=== PATIENT | female | born 1950 | race Caucasian/White ===

== ENCOUNTER 2017-04-07 07:20 | Inpatient (IN) | payer MEDICARE, MEDICAID ==
[2017-04-07 07:48] LABS: Hematocrit 48.6 % (36.0-47.0); Mean Platelet Volume 6.7 fL (7.4-10.4); Red Blood Cell (RBC) Count 5.08 mill/uL (4.20-5.40); White Blood Cell (WBC) Count 20.3 thou/uL (4.8-10.8)
[2017-04-07] MEDS ORDERED: methylPREDNISolone Sod Succ/PF 125 MG/2 ML VIAL ONE (08:03)
[2017-04-07] MEDS ORDERED: Water For Inject, Bacteriostat 30 ML ONE (08:04)
[2017-04-07 08:05] LABS: Neutrophil 77 % (42-75); Reactive Lymphocytes 3 % (0-10)
[2017-04-07 08:11] LABS: ALT (SGPT) 15 U/L (8-55); AST (SGOT) 15 U/L (5-34); Alkaline Phosphatase 106 U/L (40-150); Anion Gap 16 mmol/L (10-20); BUN (Urea Nitrogen) 12 mg/dL (9.8-20.1); Bilirubin, Total 0.3 mg/dL (0.2-1.2); CK (CPK) 26 U/L (29-168); Calc. Creatinine Clearance 0 mL/min (70-130); Calcium 9.3 mg/dL (7.8-10.44); Carbon Dioxide 31 mmol/L (23-31); Chloride 96 mmol/L (98-107); Estimated GFR-MDRD 88; Globulin 3.7 g/dL (2.4-3.5); Protein, Total 7.5 g/dL (6.0-8.3)
[2017-04-07 08:13] LABS: Troponin I Less than 0.010 ng/mL (< 0.028)
--- NOTE | 2017-04-07 08:33 | RAD ---
CHEST 1 VIEW: HISTORY: Dyspnea. COMPARISON: 05/05/16. FINDINGS: Cardiac silhouette is magnified and upper limits of normal in size. Pulmonary vasculature is also u pper limits of normal. Mediastinum is midline. There is no lobar consolidation or evidence of pneu mothorax. family day care worker leads overlie the chest. IMPRESSION: Borderline cardiomegaly and pulmonary vascular congestion. POS: [facility]
[2017-04-07] MEDS ORDERED: Ondansetron HCl/PF 4 MG/2 ML Vial IVP PRN ×2 (10:30→12:54)
[2017-04-07] MEDS ORDERED: Acetaminophen 325 MG TAB PO PRN (10:30)
[2017-04-07] MEDS ORDERED: Ondansetron ODT 4 MG TAB SL PRN (10:30)
[2017-04-07 11:38] LABS: Troponin I Less than 0.010 ng/mL (< 0.028)
--- NOTE | 2017-04-07 12:45 | HP ---
PRIMARY CARE PHYSICIAN: Kathy Chadwick D.O. REASON FOR ADMISSION: COPD exacerbation with acute bronchitis/early pneumonia. HISTORY OF PRESENT ILLNESS: A 66-year-old female who has underlying history of morbid obesity as we ll as COPD and chronic respiratory failure on home oxygen therapy, who came to emergency room with c omplaint of increasing shortness of breath. The patient reports that she is sick this time for almo st a week or two. All symptoms started with upper respiratory infection and since then she is havin g gradual increase in shortness of breath. She was also having cough productive of yellowish sputum . She denies any hemoptysis. She was also having chest tightness and some pleuritic discomfort. S he was subjectively feeling warm at home. The patient reports that her home oxygen therapy as well as her home inhalers was not helping, and that is why she decided to come to the emergency room for evaluation. When this patient came to the ER, she was appeared in mild respiratory distress. She was on nonrebr eather and she was maintaining saturation 94%. She was tachypneic and tachycardic and hypertensive. Routine blood tests showed leukocytosis and her chest x-ray was showing chronic changes without an y acute process. This patient was wheezing in her both lungs. In the emergency room, the patient w as given Levaquin 750 mg. The patient already received Solu-Medrol 125 mg by paramedics. The patient is being admitted to medical floor for her COPD flare-up with bronchitis as well as bernice y pneumonia. PAST MEDICAL HISTORY: Morbid obesity, diverticulosis, dyslipidemia, COPD/asthma, hypertension, and epilepsy. PAST SURGICAL HISTORY: Cholecystectomy, hysterectomy, tonsillectomy, left ankle open reduction and internal fixation. PAST PSYCHIATRIC HISTORY: Anxiety and depression. SOCIAL HISTORY: The patient lives with her sister. She has a history of smoking. She denies any a lcohol or other illicit drug abuse. She is not able to quantify her number of cigarette smoking per day. FAMILY HISTORY: Positive for malignancy of unknown type to her mother. No family history of arnold ry artery disease or stroke. ALLERGIES: No known drug allergies. REVIEW OF SYSTEMS: The following complete review of systems was negative, unless otherwise mentione d in the HPI or below: Constitutional: Weight loss or gain, ability to conduct usual activities. Skin: Rash, itching. Eyes: Double vision, pain. ENT/Mouth: Nose bleeding, neck stiffness, pain, tenderness. Cardiovascular: Palpitations, dyspnea on exertion, orthopnea. Respiratory: Shortness of breath, wheezing, cough, hemoptysis, fever or night sweats. Gastrointestinal: Poor appetite, abdominal pain, heartburn, nausea, vomiting, constipation, or diar manny. Genitourinary: Urgency, frequency, dysuria, nocturia. Musculoskeletal: Pain, swelling. Neurologic/Psychiatric: Anxiety, depression. Allergy/Immunologic: Skin rash, bleeding tendency. Please see my HPI for pertinent positives and negatives. All other review of systems reviewed and n egative except as mentioned in the HPI. EMERGENCY ROOM COURSE: The patient has received Levaquin 750 mg. CURRENT HOME MEDICATIONS: The patient is on albuterol nebulization every 4 hourly p.r.n., Lasix 20 mg p.o. daily, Keppra 500 mg twice daily, phenobarbital 64.8 mg at bedtime, potassium chloride 20 mE q p.o. daily, Accupril 10/12.5 one tablet p.o. daily, and Zoloft 50 mg p.o. daily. PHYSICAL EXAMINATION: VITAL SIGNS: On arrival, blood pressure 154/100, pulse 150 and then came down to 100, respiratory r ate 23, temperature 97.8, saturation 94% on facemask, weight 131.5 kilograms. GENERAL: The patient is currently alert, awake, appears in mild respiratory distress. HEENT: Head: Normocephalic and atraumatic. Eyes: Pupils round, reactive to light. Extraocular m uscles are intact. ENT: Oropharynx within normal limits. Moist mucous membranes. No oral lesions . No pharyngeal erythema, no exudates. NECK: Supple, short neck. Difficult to assess JVD. No meningeal signs of irritation. LUNGS: Bilateral rhonchi, no rales. CARDIAC: S1, S2 regular, tachycardia, no murmur, no gallop, no rub. ABDOMEN: Morbid obesity limiting examination. Bowel sounds present, nontender, nondistended. No o rganomegaly, no mass, no suprapubic tenderness. BACK: Unremarkable, no CVA tenderness. EXTREMITIES: Upper extremity passive movements of all joints are normal. Lower extremities: No ed lisa. Good peripheral pulsation. SKIN: No skin rash. HEMATOLOGICAL: No lymphadenopathy. PSYCHIATRIC: Normal affect. SIGNIFICANT LABS: EKG based on my review, sinus tachycardia, premature atrial complexes, nonspecifi c ST-T changes. Chest x-ray based on my review, no acute cardiopulmonary process, chronic changes. CBC: WBC 20.3, hemoglobin 15.4, platelet 267 with left shift. BMP: Sodium 139, potassium 4.0, ch loride 96, carbon dioxide 31, BUN 12, creatinine 0.67, glucose 155, calcium 9.3. LFT: AST 15, ALT 15, alkaline phosphatase was 106, albumin 3.8, CK 26, CK-MB 0.7, troponin I less than 0.010, BNP 26. 2. Second set of troponin is also negative. ASSESSMENT AND PLAN: 1. Acute chronic obstructive pulmonary disease exacerbation with acute bronchitis/early pneumonia. This patient has dyspnea with cough and her leukocytosis and she failed outpatient therapy. At thi s point, the patient will require admission and we will continue to treat her with empiric antibioti c therapy with Rocephin 1 gram q.24 h., Levaquin 750 mg IV daily and DuoNeb therapy every 6 hourly a s well as as needed basis, Dulera two puffs inhalation b.i.d., Solu-Medrol 40 mg IV q.6 hourly and s ymptomatic treatment with Robitussin, Tessalon and Chloraseptic gargle. We will closely monitor pablito lentz in hospital. 2. Hypertension. I will continue the patient's home medication of quinapril 10 mg p.o. daily and h ydrochlorothiazide 12.5 mg p.o. daily. 3. Anxiety and depression. We will continue Zoloft 50 mg p.o. daily. 4. Epilepsy, restless seizure disorder. We will continue Keppra 500 mg twice daily, phenobarbital 64.8 mg p.o. daily. 5. Morbid obesity. Dietary education given, weight loss education given. 6. Chronic respiratory failure on home oxygen therapy. We will continue oxygen to keep saturation 92 and above. 7. Deep venous thrombosis prophylaxis. Lovenox 40 mg subcu daily. 8. Gastrointestinal prophylaxis. Protonix 40 mg p.o. daily. CODE STATUS: The patient is FULL CODE. The patient does not have any surrogate decision maker. Disposition plan based on clinical course. We are expecting patient's stay in the hospital more johana n 2 midnights. Plan of care discussed with the patient in detail.
[2017-04-07] MEDS ORDERED: Artificial Tears 18 DROP/0.9 ML EA EYE PRN (12:54)
[2017-04-07] MEDS ORDERED: Loperamide HCl 2 MG CAP PO PRN (12:54)
[2017-04-07] MEDS ORDERED: Milk Of Magnesia 30 ML UDCUP PO PRN (12:54)
[2017-04-07] MEDS ORDERED: Sodium Chloride 0.65% Nasal 44 ML BOT EA NARE PRN (12:54)
[2017-04-07] MEDS ORDERED: Ondansetron ODT 4 MG TAB PO PRN (12:54)
[2017-04-07] MEDS ORDERED: Chloraseptic Spray 180 ml Bottle PO PRN (12:54)
[2017-04-07] MEDS ORDERED: Benzonatate 100 MG CAP PO PRN (12:54)
[2017-04-07] MEDS ORDERED: Eucerin (Mineral Oil/Petrolatum,White) 30 gm Jar TOP PRN (12:54)
[2017-04-07] MEDS ORDERED: HYDROcodone/Acetaminophen 5/325 mg Tablet PO PRN (12:54)
[2017-04-07] MEDS ORDERED: cloNIDine HCl 0.1 MG TAB PO PRN (12:54)
[2017-04-07] MEDS ORDERED: Senokot 8.6 MG TAB PO PRN (12:54)
[2017-04-07] MEDS ORDERED: Mag-Al 1200 mg/1200 mg/30 ML UDCUP PO PRN (12:54)
[2017-04-07] MEDS ORDERED: Loratadine 10 MG TAB PO PRN (12:54)
[2017-04-07 13:44] VITALS: BMI 53.4
[2017-04-07] MEDS: cefTRIAXone\\ROCEPHIN 1 GM in Sodium Chloride 0.9% 100 ML IVPB SCH (14:34)
[2017-04-07] MEDS: Diabetic Tussin 200 MG/10 ML UDCUP PO PRN (18:03)
[2017-04-07] MEDS: Mometasone/Formoterol 120 PUFF INHALER INH SCH (18:33)
[2017-04-07] MEDS: guaiFENesin ER 600 MG TAB PO SCH (20:24)
[2017-04-07] MEDS: levETIRAcetam 500 MG TAB PO SCH (20:24)
[2017-04-07] MEDS ORDERED: PHENobarbital 64.8 MG TAB PO SCH ×2 (21:00)
[2017-04-07] MEDS ORDERED: FLU VACC TS2017-18 (>65YR) 0.5 ML SYRINGE IM ONE (21:00)
[2017-04-07] MEDS: PHENobarbital 32.4 MG TAB PO SCH (23:11)
[2017-04-08] MEDS: Diabetic Tussin 200 MG/10 ML UDCUP PO PRN (00:03)
[2017-04-08 05:08] LABS: ALT (SGPT) 13 U/L (8-55); AST (SGOT) 19 U/L (5-34); Alkaline Phosphatase 101 U/L (40-150); Anion Gap 13 mmol/L (10-20); BUN (Urea Nitrogen) 12 mg/dL (9.8-20.1); Bilirubin, Total 0.3 mg/dL (0.2-1.2); Calc. Creatinine Clearance 190 mL/min (70-130); Calcium 8.9 mg/dL (7.8-10.44); Carbon Dioxide 32 mmol/L (23-31); Chloride 97 mmol/L (98-107); Estimated GFR-MDRD Greater than 90; Globulin 3.6 g/dL (2.4-3.5); Protein, Total 7.1 g/dL (6.0-8.3)
[2017-04-08 05:56] LABS: Band 2 % (5-11); Hematocrit 46.4 % (36.0-47.0); Mean Platelet Volume 7.3 fL (7.4-10.4); Neutrophil 90 % (42-75); Reactive Lymphocytes 6 % (0-10); Red Blood Cell (RBC) Count 4.78 mill/uL (4.20-5.40); White Blood Cell (WBC) Count 23.3 thou/uL (4.8-10.8)
[2017-04-08 07:22] LABS: Oxyhemoglobin 83.5 % (94.0-97.0); Sodium 140 mmol/L (135-148)
[2017-04-08 07:23] LABS: Vent NO
[2017-04-08 07:25] LABS: Mode NC
[2017-04-08] MEDS: Mometasone/Formoterol 120 PUFF INHALER INH SCH (07:29)
[2017-04-08] MEDS ORDERED: Hydrochlorothiazide 25 MG TAB PO SCH (09:00)
[2017-04-08] MEDS: levETIRAcetam 500 MG TAB PO SCH ×2 (09:56→20:34)
[2017-04-08] MEDS: guaiFENesin ER 600 MG TAB PO SCH ×2 (09:56→20:34)
[2017-04-08] MEDS: Potassium Chloride 20 MEQ TAB PO SCH (09:56)
[2017-04-08] MEDS: Enoxaparin Sodium 40 MG/0.4 ML SYRINGE SC SCH (09:58)
[2017-04-08] MEDS ORDERED: Magnesium Sulfate 3 GM in Sodium Chloride 0.9% 100 ML IVPB SCH (12:30)
--- NOTE | 2017-04-08 14:17 | PDOC.PN ---
- Subjective Encounter Start Date: 04/08/17 Encounter Start Time: 06:45 Subjective: has sob, no chest pain - Objective Resuscitation Status: Resuscitation Status FULL:Full Resuscitation MAR Reviewed: Yes Vital Signs & Weight: Vital Signs (12 hours) Temp Pulse Resp BP BP Pulse Ox 04/08/17 13:00 78 04/08/17 11:00 98.5 F 76 28 H 119/54 L 94 L 04/08/17 09:05 69 04/08/17 08:35 98.5 F 76 24 H 129/81 91 L 04/08/17 07:08 85 24 H 131 H 04/08/17 04:00 98.5 F 82 18 131/64 96 Weight Weight 292 lb 2 oz I&O: 04/07/17 04/08/17 04/09/17 06:59 06:59 06:59 Intake Total 400 Balance 400 Result Diagrams: 04/08/17 04:14 04/08/17 04:14 Phys Exam - Physical Examination HEENT: PERRLA, moist MMs Neck: no JVD, supple Respiratory: no rales, wheezing present Cardiovascular: RRR, no significant murmur Gastrointestinal: soft, non-tender, positive bowel sounds Musculoskeletal: pulses present, edema present Neurological: non-focal, moves all 4 limbs Psychiatric: A&O x 3 Dx/Plan (1) Acute and chronic respiratory failure with hypoxia Code(s): J96.21 - ACUTE AND CHRONIC RESPIRATORY FAILURE WITH HYPOXIA Status: Acute Comment: and hypercarbia (2) COPD exacerbation Code(s): J44.1 - CHRONIC OBSTRUCTIVE PULMONARY DISEASE W (ACUTE) EXACERBATION Status: Acute (3) Seizure disorder Code(s): G40.909 - EPILEPSY, UNSP, NOT INTRACTABLE, WITHOUT STATUS EPILEPTICUS Status: Chronic (4) HTN (hypertension) Code(s): I10 - ESSENTIAL (PRIMARY) HYPERTENSION Status: Chronic Qualifiers: Hypertension type: essential hypertension (5) Morbid obesity Code(s): E66.01 - MORBID (SEVERE) OBESITY DUE TO EXCESS CALORIES Status: Chronic (6) Physical deconditioning Code(s): R53.81 - OTHER MALAISE Status: Chronic (7) BENIGNO (obstructive sleep apnea) Code(s): G47.33 - OBSTRUCTIVE SLEEP APNEA (ADULT) (PEDIATRIC) Status: Chronic - Plan transfer pt to [facility] for bipap trial -: pt is noncompliant with her home cpap? -: also mentions that her machine was taken back and needs new sleep study -: is on iv steroids, nebs, levaquin and ceftriaxone -: pulm consultation * . Review of Systems - Medications/Allergies Allergies/Adverse Reactions: Allergies Allergy/AdvReac Type Severity Reaction Status Date / Time No Known Drug Allergies Allergy Verified 10/18/13 00:49 Medications: Current Medications Acetaminophen (Tylenol) 650 mg PO Q4H PRN PRN Reason: Headache/Fever or Pain Al Hydroxide/Mg Hydroxide (Maalox) 30 ml PO Q6H PRN PRN Reason: Heartburn or Indigestion Albuterol/Ipratropium (Duoneb) 3 ml NEB [id number] PRN PRN Reason: SOB &/or Wheezing Last Admin: 04/07/17 15:20 Dose: 3 ml Artificial Tears (Tears Naturale) 0 drop EA EYE PRN PRN PRN Reason: Dry Eyes Benzonatate (Tessalon) 100 mg PO Q4H PRN PRN Reason: Cough Clonidine HCl (Catapres) 0.1 mg PO Q4H PRN PRN Reason: SBP GREATER THAN 160 Enoxaparin Sodium (Lovenox) 40 mg SC 0900 [facility] Last Admin: 04/08/17 09:58 Dose: 40 mg Guaifenesin (Robitussin Sf) 200 mg PO Q4H PRN PRN Reason: Cough Last Admin: 04/08/17 00:03 Dose: 200 mg Guaifenesin (Mucinex) 600 mg PO Q12HR [facility] Last Admin: 04/08/17 09:56 Dose: 600 mg Hydralazine HCl (Apresoline) 10 mg SLOW IVP Q4H PRN PRN Reason: Systolic BP > 180 Ceftriaxone Sodium 1 gm/ (Sodium Chloride) 100 mls @ 200 mls/hr IVPB Q24HR [facility] Last Admin: 04/07/17 14:34 Dose: 100 mls Magnesium Sulfate 3 gm/ Sodium (Chloride) 106 mls @ 53 mls/hr IVPB NOW AISSATOU Stop: 04/08/17 14:30 Last Admin: 04/08/17 12:49 Dose: 106 mls Levetiracetam (Keppra) 500 mg PO BID [facility] Last Admin: 04/08/17 09:56 Dose: 500 mg Loperamide HCl (Imodium) 2 mg PO PRN PRN PRN Reason: Diarrhea/Loose Stools Magnesium Hydroxide (Milk Of Magnesium) 30 ml PO DAILYPRN PRN PRN Reason: Constipation Methylprednisolone Sodium Succinate (Solu-Medrol) 40 mg IVP Q6H [facility] Last Admin: 04/08/17 09:56 Dose: 40 mg Mineral Oil/White Petrolatum (Eucerin Cream) 0 gm TOP BIDPRN PRN PRN Reason: Dry Skin Ondansetron HCl (Zofran Odt) 4 mg PO Q6H PRN PRN Reason: Nausea/Vomiting Ondansetron HCl (Zofran) 4 mg IVP Q6H PRN PRN Reason: Nausea/Vomiting Pantoprazole Sodium (Protonix) 40 mg PO DAILY [facility] Last Admin: 04/08/17 09:57 Dose: 40 mg Phenobarbital (Phenobarbital) 129.6 mg PO HS [facility] Last Admin: 04/07/17 23:11 Dose: 129.6 mg Phenol (Chloraseptic [place] 180 Ml Bot) 0 ml PO PRN PRN PRN Reason: Sore Throat Potassium Chloride (K-Dur) 20 meq PO QAM-WM [facility] Last Admin: 04/08/17 09:56 Dose: 20 meq Senna (Senokot) 2 tab PO HSPRN PRN PRN Reason: Constipation Sertraline HCl (Zoloft) 50 mg PO DAILY [facility] Last Admin: 04/08/17 09:56 Dose: 50 mg Sodium Chloride ([place] Nasal [place] 0.65%) 0 ml EA NARE QIDPRN PRN PRN Reason: Nasal Congestion Sodium Chloride (Flush - Normal Saline) 10 ml IVF Q12HR [facility] Last Admin: 04/08/17 09:59 Dose: 10 ml Sodium Chloride (Flush - Normal Saline) 10 ml IVF PRN PRN PRN Reason: Saline Flush
[2017-04-08] MEDS: cefTRIAXone\\ROCEPHIN 1 GM in Sodium Chloride 0.9% 100 ML IVPB SCH (15:08)
--- NOTE | 2017-04-08 19:17 | CON ---
DATE OF CONSULTATION: 04/08/2017 Ms. Ace is a 66-year-old female who has between 15 and [id number] history of smoking. She repor tedly has history of asthma and COPD. She was admitted yesterday with complaints of shortness of br eath. She was transferred to the ICU today and placed on noninvasive ventilation. I was consulted by the nurse at the bedside. PAST MEDICAL HISTORY: Remarkable for diverticulosis, obesity, sleep apnea, hypertension, cholecyste ctomy, hysterectomy, tonsillectomy and left ankle fracture surgery. She also reportedly has history of a seizure disorder, anxiety, and depression. She told me that she quit smoking, but says that she told the admitting physician, she was still smo freddy. FAMILY HISTORY: Positive for cancer, no history of lung disease at an early age. ALLERGIES: She reports no drug allergies. REVIEW OF SYSTEMS: Otherwise negative. She told me she wanted to go home, felt good . With regards to her sleep apnea, she says that she has had 3 sleep studies and her CPAP was picked u p by [facility]. She says she was unable to get a full facemask which is what she likes. I suspect they picked up her CPAP, she did not have the minimum requirement use. PHYSICAL EXAMINATION: VITAL SIGNS: She is afebrile, heart rate 76, respiratory rate 25. Oximetry is 98, blood pressure 1 55/84. HEENT: Pupils are equal. Sclerae is anicteric. NECK: Supple. LUNGS: Remarkable for diffuse coarse wheezes. HEART: Regular rhythm. ABDOMEN: Soft. EXTREMITIES: Without asymmetry. LABORATORY DATA: White count 23.3, hemoglobin 14.5, platelets 231. Sodium 137, potassium 4.7, chlo ride 97, bicarbonate 32, BUN 12, creatinine 0.6, pH 7.3, CO2 of 80, pO2 of 50, that was at 7:00 this morning. IMPRESSION: 1. Untreated sleep apnea. 2. Chronic obstructive pulmonary disease exacerbation with acute on chronic respiratory failure. S he is clinically speaking in complete sentences and says that she is comfortable with a BiPAP on. W e will continue more frequent respiratory care, will add magnesium. Continue steroids. I have revi ewed her chest radiographs. I do not see any infiltrates suggestive of pneumonia. I will be happy to follow along with the other physicians caring for her.
[2017-04-08] MEDS: PHENobarbital 32.4 MG TAB PO SCH (20:34)
[2017-04-08] MEDS: Acetaminophen 325 MG TAB PO PRN (22:43)
[2017-04-09 05:42] LABS: #Eosinphils 0.1 thou/uL (0.0-0.7); #Lymphocytes 0.9 thou/uL (1.20-3.40); #Monocytes 0.4 thou/uL (0.11-0.59); #Neutrophils 15.5 thou/uL (1.40-6.50); %Eosinophils 0.4 % (0.0-10.0); %Lymphocytes 5.2 % (21.0-51.0); %Monocytes 2.6 % (0.0-10.0); Hematocrit 44.3 % (36.0-47.0); Mean Platelet Volume 6.9 fL (7.4-10.4); Red Blood Cell (RBC) Count 4.53 mill/uL (4.20-5.40); White Blood Cell (WBC) Count 16.8 thou/uL (4.8-10.8)
[2017-04-09 06:05] LABS: BUN (Urea Nitrogen) 19 mg/dL (9.8-20.1); Calc. Creatinine Clearance 178 mL/min (70-130); Calcium 8.8 mg/dL (7.8-10.44); Estimated GFR-MDRD Greater than 90
[2017-04-09 06:14] LABS: Anion Gap 12 mmol/L (10-20); Carbon Dioxide 36 mmol/L (23-31); Chloride 96 mmol/L (98-107)
[2017-04-09] MEDS: levETIRAcetam 500 MG TAB PO SCH ×2 (08:08→21:25)
[2017-04-09] MEDS: guaiFENesin ER 600 MG TAB PO SCH ×2 (08:09→21:25)
[2017-04-09] MEDS: Potassium Chloride 20 MEQ TAB PO SCH (08:10)
[2017-04-09] MEDS: Enoxaparin Sodium 40 MG/0.4 ML SYRINGE SC SCH (08:10)
[2017-04-09] MEDS: cefTRIAXone\\ROCEPHIN 1 GM in Sodium Chloride 0.9% 100 ML IVPB SCH (13:56)
[2017-04-09] MEDS: Acetaminophen 325 MG TAB PO PRN (13:56)
--- NOTE | 2017-04-09 14:47 | PDOC.PN ---
- Subjective Encounter Start Date: 04/09/17 Encounter Start Time: 14:35 Subjective: f/u for COPD exacerbation on intermittent BIPAP. Currently off NIMV -: on O2 via NC. Previously used home CPAP but machine was taken by -: Marianela 2 months ago. - Objective Resuscitation Status: Resuscitation Status FULL:Full Resuscitation MAR Reviewed: Yes Vital Signs & Weight: Vital Signs (12 hours) Temp Pulse Pulse Resp BP BP Pulse Ox 04/09/17 11:46 97.3 F L 71 22 H 150/65 H 98 04/09/17 09:05 75 111/60 04/09/17 08:00 98.2 F 72 22 H 131/50 L 91 L 04/09/17 06:56 90 L 04/09/17 04:17 78 96 04/09/17 04:00 98.2 F 101 H 20 125/53 L 98 Pulse Ox 04/09/17 11:46 04/09/17 09:05 97 04/09/17 08:00 04/09/17 06:56 04/09/17 04:17 04/09/17 04:00 Weight Weight 292 lb 2 oz I&O: 04/08/17 04/09/17 04/10/17 06:59 06:59 06:59 Intake Total 400 350 Output Total 1400 Balance 400 -1050 Result Diagrams: 04/09/17 05:26 04/09/17 05:26 Additional Labs: Laboratory Tests 04/07/17 04/08/17 04/08/17 07:39 04:14 04:14 WBC 20.3 H 23.3 H Potassium 4.7 Radiology Reviewed by me: Yes (PCXR - no acute infiltrate) EKG Reviewed by me: Yes (Tele - SR in 70's) Phys Exam - Physical Examination Constitutional: NAD talks in 5-6 word sentences HEENT: PERRLA, oral pharynx no lesions Neck: no JVD, supple diminished in all ng, exp wheezes Cardiovascular: RRR Gastrointestinal: soft, non-tender, no distention, positive bowel sounds Musculoskeletal: no edema, pulses present Neurological: normal sensation, moves all 4 limbs Psychiatric: A&O x 3 Skin: normal turgor, cap refill <2 seconds Dx/Plan (1) Acute on chronic respiratory failure with hypoxia and hypercapnia Code(s): J96.21 - ACUTE AND CHRONIC RESPIRATORY FAILURE WITH HYPOXIA; J96.22 - ACUTE AND CHRONIC RESPIRATORY FAILURE WITH HYPERCAPNIA Status: Acute Comment : Continue O2 supplementation and intermitten BiPAP, will need outpt BiPAP/CPAP for home use with PaCO2 80, pulmonary support (2) BENIGNO (obstructive sleep apnea) Code(s): G47.33 - OBSTRUCTIVE SLEEP APNEA (ADULT) (PEDIATRIC) Status: Chronic Comment: See above (3) COPD exacerbation Code(s): J44.1 - CHRONIC OBSTRUCTIVE PULMONARY DISEASE W (ACUTE) EXACERBATION Status: Acute Comment: Continue Rocephin, Duonebs and Solumedrol (4) Morbid obesity Code(s): E66.01 - MORBID (SEVERE) OBESITY DUE TO EXCESS CALORIES Status: Chronic (5) Physical deconditioning Code(s): R53.81 - OTHER MALAISE Status: Chronic (6) HTN (hypertension) Code(s): I10 - ESSENTIAL (PRIMARY) HYPERTENSION Status: Chronic Qualifiers: Hypertension type: essential hypertension Comment: Resume home BP regimen, follow clinically - Plan continue antibiotics, PT/OT, health and social care teacher, respiratory therapy, out of bed/ ambulate, DVT proph w/SCDs Stable overall -: Intermittent BiPAP, CM for assistance on outpt CPAP -: Continue Solumedrol 40mg IV q6h -: Add Dulera 200mcg 1 puff BID -: AM lab: BMP * .
[2017-04-09] MEDS: Mometasone/Formoterol 120 PUFF INHALER INH SCH (19:38)
--- NOTE | 2017-04-09 21:04 | PRG ---
DATE OF SERVICE: 04/09/2017 SUBJECTIVE: Marychuy Ace says she feels much better. We have her off BiPAP now, will continue to thompson ve her sleep with this. OBJECTIVE: VITAL SIGNS: Blood pressure 150/65, respiratory rate is in the 20s, heart rate was 70. She is afeb rile. LUNGS: Still remarkable for wheezes, but these are improved. HEART: Regular rhythm. ABDOMEN: Soft. LABORATORY DATA: White count 16.8, hemoglobin 13.9, platelets 215. Sodium 139, potassium 5.3, chloride 96, bicarbonate 36, BUN 19, creatinine 0.6, glucose 146. IMPRESSION: 1. Sleep apnea. 2. Chronic obstructive pulmonary disease exacerbation. 3. Life threatening obesity. PLAN: Continue with the above. She probably should stay in the IMU for now.
[2017-04-09] MEDS: PHENobarbital 32.4 MG TAB PO SCH (21:25)
[2017-04-10 05:42] LABS: Anion Gap 11 mmol/L (10-20); BUN (Urea Nitrogen) 21 mg/dL (9.8-20.1); Calc. Creatinine Clearance 182 mL/min (70-130); Calcium 8.8 mg/dL (7.8-10.44); Carbon Dioxide 37 mmol/L (23-31); Chloride 96 mmol/L (98-107); Estimated GFR-MDRD Greater than 90
[2017-04-10] MEDS: Mometasone/Formoterol 120 PUFF INHALER INH SCH ×2 (07:56→18:59)
[2017-04-10] MEDS: guaiFENesin ER 600 MG TAB PO SCH ×2 (08:51→20:48)
[2017-04-10] MEDS: Potassium Chloride 20 MEQ TAB PO SCH (08:52)
[2017-04-10] MEDS: levETIRAcetam 500 MG TAB PO SCH ×2 (08:52→20:48)
[2017-04-10] MEDS: Enoxaparin Sodium 40 MG/0.4 ML SYRINGE SC SCH (08:54)
--- NOTE | 2017-04-10 09:59 | PDOC.PN ---
- Subjective Encounter Start Date: 04/10/17 Encounter Start Time: 09:45 Subjective: f/u for COPD exacerbation and acute respiratory failure. Feels better -: overall. Using BiPAP at night and O2 via NC during the day. - Objective Resuscitation Status: Resuscitation Status FULL:Full Resuscitation MAR Reviewed: Yes Vital Signs & Weight: Vital Signs (12 hours) Temp Pulse Resp BP BP Pulse Ox 04/10/17 08:00 98.3 F 66 20 93 L 04/10/17 07:13 98.3 F 66 20 164/71 H 93 L 04/10/17 04:00 98.0 F 68 160/55 H 04/10/17 02:18 139/54 L 04/10/17 00:00 98.1 F 67 24 H 172/57 H 94 L Weight Weight 293 lb I&O: 04/09/17 04/10/17 04/11/17 06:59 06:59 06:59 Intake Total 350 2170 Output Total 1400 750 Balance -1050 1420 Result Diagrams: 04/09/17 05:26 04/10/17 05:09 EKG Reviewed by me: Yes (Tele - SR in 60's) Phys Exam - Physical Examination Constitutional: NAD HEENT: PERRLA, oral pharynx no lesions Neck: no JVD, supple scattered coarse sounds, increased aeration of bases Cardiovascular: RRR Gastrointestinal: soft, non-tender, no distention, positive bowel sounds Musculoskeletal: no edema, pulses present Neurological: normal sensation, moves all 4 limbs Psychiatric: A&O x 3 Skin: normal turgor, cap refill <2 seconds Dx/Plan (1) Acute on chronic respiratory failure with hypoxia and hypercapnia Code(s): J96.21 - ACUTE AND CHRONIC RESPIRATORY FAILURE WITH HYPOXIA; J96.22 - ACUTE AND CHRONIC RESPIRATORY FAILURE WITH HYPERCAPNIA Status: Acute Comment : Continue O2 supplementation and intermitten BiPAP, will need outpt BiPAP/CPAP for home use with PaCO2 80, pulmonary support (2) BENIGON (obstructive sleep apnea) Code(s): G47.33 - OBSTRUCTIVE SLEEP APNEA (ADULT) (PEDIATRIC) Status: Chronic Comment: See above (3) COPD exacerbation Code(s): J44.1 - CHRONIC OBSTRUCTIVE PULMONARY DISEASE W (ACUTE) EXACERBATION Status: Acute Comment: D/C Rocephin, start Omnicef 300mg BID, Duonebs and Solumedrol (4) Morbid obesity Code(s): E66.01 - MORBID (SEVERE) OBESITY DUE TO EXCESS CALORIES Status: Chronic (5) Physical deconditioning Code(s): R53.81 - OTHER MALAISE Status: Chronic (6) HTN (hypertension) Code(s): I10 - ESSENTIAL (PRIMARY) HYPERTENSION Status: Chronic Qualifiers: Hypertension type: essential hypertension Comment: Resume home BP regimen, follow clinically - Plan continue antibiotics, PT/OT, protective services social worker, respiratory therapy, out of bed/ ambulate, DVT proph w/SCDs Stable currently -: D/C Rocephin -: Start Omnicef 300mg BID -: Decrease Solumedrol 40mg IV q8h -: Continue Effie Gann * CM for assistance with home BiPAP * Transfer to medical * Likely home in 24h
[2017-04-10] MEDS ORDERED: Cefdinir 300 MG CAP PO SCH (11:00)
--- NOTE | 2017-04-10 12:26 | PRG ---
DATE OF SERVICE: 04/10/2017 Marychuy Ace says she feels 100% better. PHYSICAL EXAMINATION: VITAL SIGNS: She is afebrile, heart rate 66, respiratory rate 20, oximetry is 93 on 2 liters, blood pressure 164/71. LUNGS: Lungs are still remarkable for diffuse coarse wheezes. HEART: Regular rhythm. ABDOMEN: Soft. IMPRESSION: 1. Chronic obstructive pulmonary disease exacerbation. She said she quit smoking 2 years ago when her sister 2. Sleep apnea, currently not being treated. Will try to arrange CPAP for her with a full face mas k when she is discharged, pending her next sleep study, she apparently has to for Medicare reasons h ave another sleep study. I will review her sleep study and make recommendations prior to discharge. She is probably still se veral days away from going home. She is stable to move out of Intermediate Care Unit.
[2017-04-10] MEDS: Cefdinir 300 MG CAP PO SCH (20:48)
[2017-04-10] MEDS: PHENobarbital 32.4 MG TAB PO SCH (20:49)
[2017-04-11] MEDS: Mometasone/Formoterol 120 PUFF INHALER INH SCH ×2 (06:18→18:21)
[2017-04-11] MEDS: Cefdinir 300 MG CAP PO SCH ×2 (07:54→20:52)
[2017-04-11] MEDS: Enoxaparin Sodium 40 MG/0.4 ML SYRINGE SC SCH (07:55)
[2017-04-11] MEDS: guaiFENesin ER 600 MG TAB PO SCH ×2 (07:55→20:52)
[2017-04-11] MEDS: levETIRAcetam 500 MG TAB PO SCH ×2 (07:55→20:52)
[2017-04-11] MEDS: Potassium Chloride 20 MEQ TAB PO SCH (07:55)
--- NOTE | 2017-04-11 14:41 | PDOC.PN ---
- Subjective Encounter Start Date: 04/11/17 Encounter Start Time: 14:30 Subjective: f/u for COPD exacerbation and severe BENIGNO. Tolerated nocturnal BiPAP -: and now on baseline O2 @ 2L/min NC. Still wheezing and SOB with -: movement but overall feels better. - Objective Resuscitation Status: Resuscitation Status FULL:Full Resuscitation MAR Reviewed: Yes Vital Signs & Weight: Vital Signs (12 hours) Temp Pulse Resp BP BP Pulse Ox 04/11/17 10:31 65 24 H 97 04/11/17 08:00 97 F L 64 16 96 04/11/17 07:08 97 F L 64 16 166/86 H 92 L 04/11/17 06:18 60 16 95 04/11/17 04:00 98.3 F 58 L 20 160/52 H 92 L Weight Weight 293 lb I&O: 04/10/17 04/11/17 04/12/17 06:59 06:59 06:59 Intake Total 2170 1100 Output Total 750 Balance 1420 1100 Result Diagrams: 04/09/17 05:26 04/10/17 05:09 Additional Labs: Accuchecks 04/11/17 11:01 POC Glucose 141 H Phys Exam - Physical Examination Constitutional: NAD HEENT: PERRLA, oral pharynx no lesions Neck: no JVD, supple diminished in bases Cardiovascular: RRR Gastrointestinal: soft, non-tender, no distention, positive bowel sounds Musculoskeletal: no edema, pulses present Neurological: normal sensation, moves all 4 limbs Psychiatric: A&O x 3 Skin: normal turgor, cap refill <2 seconds Dx/Plan (1) Acute on chronic respiratory failure with hypoxia and hypercapnia Code(s): J96.21 - ACUTE AND CHRONIC RESPIRATORY FAILURE WITH HYPOXIA; J96.22 - ACUTE AND CHRONIC RESPIRATORY FAILURE WITH HYPERCAPNIA Status: Acute Comment : Continue O2 supplementation and intermitten BiPAP, will need outpt BiPAP/CPAP for home use with PaCO2 80, pulmonary support (2) BENIGNO (obstructive sleep apnea) Code(s): G47.33 - OBSTRUCTIVE SLEEP APNEA (ADULT) (PEDIATRIC) Status: Chronic Comment: See above (3) COPD exacerbation Code(s): J44.1 - CHRONIC OBSTRUCTIVE PULMONARY DISEASE W (ACUTE) EXACERBATION Status: Acute Comment: D/C Rocephin, start Omnicef 300mg BID, Duonebs and Solumedrol (4) Morbid obesity Code(s): E66.01 - MORBID (SEVERE) OBESITY DUE TO EXCESS CALORIES Status: Chronic (5) Physical deconditioning Code(s): R53.81 - OTHER MALAISE Status: Chronic (6) HTN (hypertension) Code(s): I10 - ESSENTIAL (PRIMARY) HYPERTENSION Status: Chronic Qualifiers: Hypertension type: essential hypertension Comment: Resume home BP regimen, follow clinically - Plan continue antibiotics, PT/OT, social welfare research worker, respiratory therapy, out of bed/ ambulate, DVT proph w/SCDs Stable overall -: Continue Solumedrol another 24h then convert to Prednisone -: CM for assistance with outpt CPAP -: Continue Omnicef 300mg BID -: Likely home in 24-48h * .
--- NOTE | 2017-04-11 16:45 | PRG ---
DATE OF SERVICE: 04/11/2017 SUBJECTIVE: Ms. Ace did well overnight. She is sitting in bedside chair since she is feeling muc h better. OBJECTIVE: VITAL SIGNS: She is afebrile, heart rate in the 60s, respiratory rate is in the 20s, oximetry is 97 on 2 liters, blood pressure 166/86. LUNGS: Clear. IMPRESSION: 1. Chronic obstructive pulmonary disease exacerbation. 2. Sleep apnea. She will need an another sleep study after discharge. PLAN: Switch her to p.o. medications today. Hopefully, we can discharge her in the morning.
[2017-04-11] MEDS: PHENobarbital 32.4 MG TAB PO SCH (20:52)
[2017-04-11] MEDS ORDERED: predniSONE 20 MG TAB PO SCH (22:00)
[2017-04-12] MEDS: Mometasone/Formoterol 120 PUFF INHALER INH SCH (07:24)
[2017-04-12] MEDS: Diabetic Tussin 200 MG/10 ML UDCUP PO PRN (07:25)
[2017-04-12] MEDS: levETIRAcetam 500 MG TAB PO SCH (07:27)
[2017-04-12] MEDS: Cefdinir 300 MG CAP PO SCH (07:27)
[2017-04-12] MEDS: Potassium Chloride 20 MEQ TAB PO SCH (07:28)
[2017-04-12] MEDS: Enoxaparin Sodium 40 MG/0.4 ML SYRINGE SC SCH (07:28)
[2017-04-12] MEDS: guaiFENesin ER 600 MG TAB PO SCH (07:28)
[2017-04-12] MEDS ORDERED: predniSONE 20 MG TAB PO SCH (08:00)
[2017-04-12 10:55] LABS: #Eosinphils 0.1 thou/uL (0.0-0.7); #Lymphocytes 1.1 thou/uL (1.20-3.40); #Monocytes 0.6 thou/uL (0.11-0.59); #Neutrophils 14.4 thou/uL (1.40-6.50); %Basophils 0.2 % (0.0-1.0); %Eosinophils 0.5 % (0.0-10.0); %Lymphocytes 6.6 % (21.0-51.0); %Monocytes 3.5 % (0.0-10.0); Mean Platelet Volume 6.8 fL (7.4-10.4); Red Blood Cell (RBC) Count 4.93 mill/uL (4.20-5.40); White Blood Cell (WBC) Count 16.2 thou/uL (4.8-10.8)
[2017-04-12 11:18] LABS: BUN (Urea Nitrogen) 13 mg/dL (9.8-20.1); Calc. Creatinine Clearance 164 mL/min (70-130); Calcium 9.1 mg/dL (7.8-10.44); Estimated GFR-MDRD 83
[2017-04-12 11:27] LABS: Anion Gap 13 mmol/L (10-20); Carbon Dioxide 36 mmol/L (23-31); Chloride 94 mmol/L (98-107)
--- NOTE | 2017-04-12 13:37 | PDOC.PN ---
- Subjective Encounter Start Date: 04/12/17 Encounter Start Time: 09:00 Subjective: no trouble breathing -: is ambulating with rw -: has home oxygen - Objective Resuscitation Status: Resuscitation Status FULL:Full Resuscitation MAR Reviewed: Yes Vital Signs & Weight: Vital Signs (12 hours) Temp Pulse Resp BP Pulse Ox 04/12/17 10:35 91 20 92 L 04/12/17 08:00 98.2 F 91 20 146/69 H 95 04/12/17 07:31 87 L 04/12/17 07:23 88 20 92 L Weight Weight 293 lb I&O: 04/11/17 04/12/17 04/13/17 06:59 06:59 06:59 Intake Total 1100 1999 Balance 1100 1999 Result Diagrams: 04/12/17 10:41 04/12/17 10:40 Phys Exam - Physical Examination HEENT: PERRLA, moist MMs Neck: no JVD, supple Respiratory: no wheezing, no rales Cardiovascular: RRR, no significant murmur Gastrointestinal: soft, non-tender, positive bowel sounds Musculoskeletal: no edema, pulses present Neurological: non-focal, moves all 4 limbs Psychiatric: A&O x 3 Dx/Plan (1) Acute and chronic respiratory failure with hypoxia Code(s): J96.21 - ACUTE AND CHRONIC RESPIRATORY FAILURE WITH HYPOXIA Status: Acute Comment: and hypercarbia (2) COPD exacerbation Code(s): J44.1 - CHRONIC OBSTRUCTIVE PULMONARY DISEASE W (ACUTE) EXACERBATION Status: Acute (3) Seizure disorder Code(s): G40.909 - EPILEPSY, UNSP, NOT INTRACTABLE, WITHOUT STATUS EPILEPTICUS Status: Chronic (4) HTN (hypertension) Code(s): I10 - ESSENTIAL (PRIMARY) HYPERTENSION Status: Chronic Qualifiers: Hypertension type: essential hypertension Comment: Resume home BP regimen, follow clinically (5) Morbid obesity Code(s): E66.01 - MORBID (SEVERE) OBESITY DUE TO EXCESS CALORIES Status: Chronic (6) Physical deconditioning Code(s): R53.81 - OTHER MALAISE Status: Chronic (7) BENIGNO (obstructive sleep apnea) Code(s): G47.33 - OBSTRUCTIVE SLEEP APNEA (ADULT) (PEDIATRIC) Status: Chronic Comment: See above - Plan hemostable -: steroid taper per 's prescription -: will be getting sleep study in a week via Verna's office -: dc pt home -: Has life threatenting obesity and was counselled reg exercise and diet * .
[2017-04-12 15:29] VITALS: BP 153/80; TEMP 97.1
--- NOTE | 2017-04-12 15:39 | PRG ---
DATE OF SERVICE: 04/12/2017 SUBJECTIVE: Marychuy Ace did well overnight. She is on the end expiratory wheezes now. She has a n ebulizer at home. She says she has DuoNeb for nebulizer. PHYSICAL EXAMINATION: VITAL SIGNS: She is afebrile, heart rate in the 80s, respiratory rate is 20, oximetry is 90% on nancy m air, blood pressure 146/69. IMPRESSION AND PLAN: Chronic obstructive pulmonary disease/asthma exacerbation. She is abstinent f rom tobacco for 2 years. She has a nebulizer at home. She can follow up with me in 1 week on 40 mg a day of prednisone. Will taper prednisone at that time. She will continue with nebulizer treatme nts four times a day when she comes back to the office and try to set her up for another diagnostic sleep study to qualify her for continuous positive airway pressure.
--- NOTE | 2017-04-13 06:05 | DIS ---
DATE OF ADMISSION: 04/07/2017 DATE OF DISCHARGE: 04/12/2017 DISCHARGE DISPOSITION: Home. PRIMARY DISCHARGE DIAGNOSES: Acute respiratory failure with hypercarbia due to chronic obstructive p ulmonary disease exacerbation and obstructive sleep apnea. SECONDARY DISCHARGE DIAGNOSES: History of seizure disorder which is stable; hypertension, morbid ob esity, deconditioning, obstructive sleep apnea. PROCEDURES DONE DURING HOSPITALIZATION: The patient has had a chest x-ray done on the day of [facility]miss [facility] which showed borderline cardiomegaly with pulmonary vascular congestion. She had a white count of 20 on the day of admission with 77% neutrophils. Blood gas done showed a pH of 7.30, PCO2 of 80, pO2 of 50. BNP was 26. Troponin x3 was negative. DISCHARGE MEDICATIONS: Patient to continue prednisone as prescribed by Dr. Gillespie, Zoloft 50 mg p.o. daily, quinapril with hydrochlorothiazide 10/12.5 mg p.o. daily, K-Dur 20 mEq p.o. daily, phenobarb ital 136.8 mg p.o. at bedtime, Keppra 500 mg p.o. twice daily, Lasix 20 mg p.o. daily, Ventolin nebu lization q.6 hourly p.r.n. ALLERGIES: No known drug allergies. INPATIENT CONSULTS: Dr. Gillespie for Pulmonology. BRIEF COURSE DURING HOSPITALIZATION: The patient initially got admitted on the with complaints of shortness of breath which was worsening. She also complained of cough with production of yellowi sh sputum. The patient initially got admitted to medical floor, but then went into respiratory fail ure with hypercarbia and CO2 retention. She was placed on BiPAP and was transferred to [facility]. She h as done remarkably well. The patient has history of sleep apnea and is due for a sleep study. Her CPAP machine was taken away as she is due for another sleep study. This has been scheduled via Dr. Gillespie in 1 week from the time of discharge. She was placed on IV steroids and empiric antibiotics a nd has done well. She needs to continue her home oxygen as before. She is on prednisone tapering a s prescribed by Dr. Gillespie. She is hemodynamically stable and has been cleared for discharge by Dr. Gillespie today. Please see a [id number] documentation on [facility] for the day of discharge.
== END 2017-04-12 15:35 | disposition home or self-care (01) | DRG 190 ==
LOC: ERS 07:20 → T4-A 10:52 → IMCU/EMU 04-08 08:35 → T4-A 04-10 14:28
PROVIDERS: ADMIT Internal Medicine; ATTEND Internal Medicine
PROC: 5A09357 Assistance with Respiratory Ventilation, Less than 24 Consecutive Hours, Continuous Positive Airway Pressure (ICD-10-PCS; principal; 2017-04-08)
PROC: 5A09357 Assistance with Respiratory Ventilation, Less than 24 Consecutive Hours, Continuous Positive Airway Pressure (ICD-10-PCS; 2017-04-09)
PROC: 5A09357 Assistance with Respiratory Ventilation, Less than 24 Consecutive Hours, Continuous Positive Airway Pressure (ICD-10-PCS; 2017-04-10)
PROC: 5A09357 Assistance with Respiratory Ventilation, Less than 24 Consecutive Hours, Continuous Positive Airway Pressure (ICD-10-PCS; 2017-04-11)
DX: J44.1 Chronic obstructive pulmonary disease with (acute) exacerbation (principal); J96.22 Acute and chronic respiratory failure with hypercapnia; J96.21 Acute and chronic respiratory failure with hypoxia; Z99.81 Dependence on supplemental oxygen; Z68.43 Body mass index [BMI] 50.0-59.9, adult; E66.01 Morbid (severe) obesity due to excess calories; G47.33 Obstructive sleep apnea (adult) (pediatric); G40.909 Epilepsy, unspecified, not intractable, without status epilepticus; Z87.891 Personal history of nicotine dependence; E78.5 Hyperlipidemia, unspecified; I10 Essential (primary) hypertension; F41.9 Anxiety disorder, unspecified; F32.9 Major depressive disorder, single episode, unspecified; K57.90 Diverticulosis of intestine, part unspecified, without perforation or abscess without bleeding
CPT/HCPCS: 36415; 36416; 71010; 80048; 80053; 82553; 82805; 83880; 84484; 85025; 93005; 94640; 94660; 94664; 96365; 96366; A4216; G8978-GP-CK; G8979-GP-CI; G8987-GO-CI; G8988-GO-CI; G8989-GO-CI; J0696; J1650; J1956; J2920; J2930; J3475; J7050; J7506; J7620

== ENCOUNTER 2017-04-27 19:30 | Outpatient (CLI) | payer MEDICARE, OTHER | END 2017-04-27 19:31 | disposition home or self-care (01) | LOC: SLEEPLAB 19:30 | PROVIDERS: ATTEND Internal Medicine Critical Care Medicine | DX: G47.33 Obstructive sleep apnea (adult) (pediatric) (principal); J44.9 Chronic obstructive pulmonary disease, unspecified; E66.9 Obesity, unspecified | CPT/HCPCS: 95811 ==

== ENCOUNTER 2017-05-18 14:36 | Observation (INO) | payer MEDICARE, OTHER ==
--- NOTE | 2017-05-18 15:18 | RAD ---
PORTABLE UPRIGHT FRONTAL CHEST RADIOGRAPH: Date: 05/18/17 COMPARISON: 04/07/17. HISTORY: Palpitations, tachycardia. FINDINGS: Mild pulmonary vascular prominence. Stable prominence of the cardiac silhouette noted. No pneumothora x, pleural fluid, focal consolidation, or alveolar edema. IMPRESSION: Stable appearance of the chest. POS: [facility]
[2017-05-18 16:30] LABS: #Basophils 0.1 thou/uL (0.0-0.2); #Eosinphils 0.2 thou/uL (0.0-0.7); #Lymphocytes 1.6 thou/uL (1.20-3.40); #Monocytes 0.5 thou/uL (0.11-0.59); %Basophils 0.9 % (0.0-1.0); %Eosinophils 1.5 % (0.0-10.0); %Lymphocytes 15.7 % (21.0-51.0); %Monocytes 5.1 % (0.0-10.0); Hematocrit 42.9 % (36.0-47.0); Red Blood Cell (RBC) Count 4.44 mill/uL (4.20-5.40); White Blood Cell (WBC) Count 10.4 thou/uL (4.8-10.8)
[2017-05-18 16:53] LABS: ALT (SGPT) 13 U/L (8-55); AST (SGOT) 11 U/L (5-34); Alkaline Phosphatase 86 U/L (40-150); BUN (Urea Nitrogen) 12 mg/dL (9.8-20.1); Bilirubin, Total 0.2 mg/dL (0.2-1.2); CK (CPK) 21 U/L (29-168); Calc. Creatinine Clearance 0 mL/min (70-130); Calcium 9.1 mg/dL (7.8-10.44); Estimated GFR-MDRD 81; Globulin 3.1 g/dL (2.4-3.5); Protein, Total 6.7 g/dL (6.0-8.3)
[2017-05-18 16:56] LABS: Troponin I Less than 0.010 ng/mL (< 0.028)
[2017-05-18 17:02] LABS: Anion Gap 13 mmol/L (10-20); Carbon Dioxide 36 mmol/L (23-31); Chloride 94 mmol/L (98-107)
[2017-05-18] MEDS ORDERED: Ondansetron HCl/PF 4 MG/2 ML Vial IVP PRN (18:32)
[2017-05-18] MEDS ORDERED: Milk Of Magnesia 30 ML UDCUP PO PRN (18:32)
[2017-05-18] MEDS ORDERED: Acetaminophen 325 MG TAB PO PRN (18:32)
[2017-05-18] MEDS ORDERED: Guaifenesin DM 100-10/5 ML UDCUP PO PRN (18:32)
[2017-05-18 19:33] VITALS: BMI 54.8
--- NOTE | 2017-05-18 20:58 | CON ---
DATE OF CONSULTATION: 05/18/2017 REASON FOR CONSULTATION: Tachycardia. HISTORY OF PRESENT ILLNESS: Ms. Ace is a very pleasant 66-year-old black female who comes to the hospital for palpitations. She was at home today and she had a cup of coffee was watching TV and felt some palpitations. She has a pulse oximeter and she placed it on her finger and noticed that her heart rate was 140, so she decided to ago and laid down and she said that it went suddenly from 140 down to the 80s for one moment to the next. She is not really sure if it just slowly came down. She thinks it was very abrupt as she is only just felt better. A 911 was called, EMS arrived. On their arrival, her EKG shows sinus rhythm in the 80s. When she was being driven in her heart rate suddenly jumped from 80s to 140s again and then EKG was done and it was thought to be multifocal atrial tachycardia. In my evaluation, it is either sinus tachycardia or an SVT. It is not multifocal atrial tachycardia. Currently, she feels much better. She denies any chest pain, tightness, pressure. No shortness of breath. PAST MEDICAL HISTORY: 1. Morbid obesity. 2. Diverticulosis. 3. Dyslipidemia. 4. COPD/asthma. 5. Hypertension. 6. Epilepsy. 7. Severe sleep apnea. 8. Mild coronary artery disease. She had a heart catheterization in [address] Anne that showed no significant flow-limiting disease. PAST SURGICAL HISTORY: 1. Cholecystectomy. 2. Hysterectomy. 3. Tonsillectomy. 4. Left ankle open ORIF. SOCIAL HISTORY: Remote history of smoking. She quit smoking recently. No alcohol or drugs. Lives with her sister. FAMILY HISTORY: No early coronary artery disease. OUTPATIENT MEDICATIONS: Include, 1. Albuterol inhaler. 2. Pravachol 20 mg at bedtime. 3. Cyclobenzaprine. 4. Spiriva. 5. Potassium. 6. Phenobarbital. 7. Keppra. 8. Lasix 20 mg a day. 9. Albuterol inhaler. 10. Prednisone 20 mg q.a.m. 11. Sertraline. 12. Quinapril/hydrochlorothiazide 10/12.5 mg a day. ALLERGIES: No known drug allergies. REVIEW OF SYSTEMS: A 12-point review of systems was done and is all negative unless stated in the history of present illness. PHYSICAL EXAMINATION: VITAL SIGNS: Temperature 98.1, pulse 72, respiration rate 22, satting 94% on room air, and blood pressure 129/60. GENERAL: Awake, alert, oriented x3, in no distress. HEENT: Normocephalic, atraumatic. NECK: Supple. LUNGS: Clear. CARDIOVASCULAR: S1, S2, no S3 or S4, no murmurs or rubs. Distant heart sounds. ABDOMEN: Soft, positive bowel sounds. EXTREMITIES: Trace edema. SKIN: Warm and dry. LABORATORY WORK: Reviewed. CBC is unremarkable. Chemistry is unremarkable except for chloride of 94 and carbon dioxide of 36, BUN and creatinine are normal. Normal sodium and potassium. Troponin negative x1. Albumin of 3.6. EKG was reviewed, sinus rhythm, no ischemic changes. Another EKG that shows what appears to be sinus tachycardia versus SVT, the baseline is a little difficult to evaluate there is some baseline artifact this was taken in the ambulance. I would have to assume this is SVT given the fact that she went from 80 to 150 from one moment to the next and then back to the 80s. ASSESSMENT AND PLAN: 1. Tachycardia: Most likely supraventricular tachycardia, will have EP evaluate. CCB preferred due to COPD/asthma. 2. Continue telemetry monitoring for now. Thank you for letting us to participate in the care of your patient. We will follow. MARIAM
[2017-05-18] MEDS ORDERED: levETIRAcetam 500 MG TAB PO SCH (21:30)
[2017-05-18] MEDS ORDERED: Pravastatin Sodium 20 MG TAB PO SCH (21:30)
[2017-05-18] MEDS ORDERED: PHENobarbital 64.8 MG TAB PO SCH (21:30)
[2017-05-18 22:21] LABS: Troponin I Less than 0.010 ng/mL (< 0.028)
--- NOTE | 2017-05-19 00:32 | HP ---
DATE OF ADMISSION: 05/18/2017 ADMITTING PHYSICIAN: Patricio Smith M.D. PRIMARY CARE PHYSICIAN: Roderick Gillespie M.D. CHIEF COMPLAINT: Shortness of breath, rapid heart rate. HISTORY OF PRESENT ILLNESS: The patient is a pleasant 66-year-old female with history of COPD. The patient reports that intermittently she began to feel heart palpitations last night. She was sitting on the porch today when her friends were smoking and she became acutely short of breath and EMS was called. EMS performed an EKG in the field, which showed multifocal atrial tachycardia and the patien t was brought to the emergency room for further evaluation. She denies chest pain, nausea, vomiting, diaphoresis upon my exam. Reportedly her ventricular rate went from the 80s to the 150s per EMS. I n the emergency department, she has been in normal sinus rhythm and has been stable. Dr. Garcia was consulted by the ED physicians and the patient will be admitted and evaluated for the atrial tachycar ricardo. REVIEW OF SYSTEMS: The following complete review of systems was negative, unless otherwise mentioned in the HPI or below: Constitutional: Weight loss or gain, sense of well-being, ability to conduct usual activities, exerc ise tolerance. Skin/Breast: Rash, itching, changes in hair growth or loss, nail changes, breast lumps, tenderness, swelling, nipple discharge. Eyes: Vision, double vision, tearing, blind spots, pain. ENT/Mouth: Headaches (location, time of onset, duration, precipitating factors), vertigo, lightheade dness, injury. Vision, double vision, tearing, blind spots, pain, nose bleeding, colds, obstruction, discharge, dental difficulties, gingival bleeding, dentures, neck stiffness, pain, tenderness, masses in thyroid or other areas. Cardiovascular: Precordial pain, substernal distress, palpitations, syncope, dyspnea on exertion, or thopnea, nocturnal paroxysmal dyspnea, edema, cyanosis, hypertension, heart murmurs, varicosities, ph lebitis, claudication. Respiratory: Pain, shortness of breath, wheezing, stridor, cough, hemoptysis, fever or night sweats. Gastrointestinal: Poor appetite, dysphagia, indigestion, abdominal pain, heartburn, eructation, naus ea, vomiting, hematemesis, jaundice, constipation, or diarrhea, abnormal stools (padmini-colored, tarry, bloody, greasy, foul smelling), flatulence, hemorrhoids, recent changes in bowel habits. Genitourinary: Urgency, frequency, dysuria, nocturia, hematuria, polyuria, oliguria, unusual (or jania nge in) color of urine, stones, hesitancy, change in size of stream, dribbling, acute retention or in continence, libido, potency. Musculoskeletal: Pain, swelling, redness or heat of muscles or joints, limitation, of motion, muscul ar weakness, atrophy, cramps. Neurologic/Psychiatric: Convulsions, paralyses, tremor, incoordination, paresthesias, difficulties w ith memory of speech, sensory or motor disturbances, or muscular coordination (ataxia, tremor), emoti onal problems, anxiety, depression, previous psychiatric care, unusual perceptions, hallucinations. Allergy/Immunologic: Skin rash, anemia, bleeding tendency, polydipsia, polyuria, intolerance to heat or cold. PAST MEDICAL HISTORY: Significant for dyslipidemia, hypertension, COPD, morbid obesity, and obstruct anders sleep apnea. PAST SURGICAL HISTORY: Positive for cholecystectomy, hysterectomy, tonsillectomy, left ankle fractur e repair. PSYCHIATRIC HISTORY: Positive for depression. SOCIAL HISTORY: Smoker. Denies alcohol, denies drugs. FAMILY HISTORY: Reviewed and not contributory to this case. HOME MEDICATIONS: Dilantin 30 mg unknown; albuterol metered dose inhaler q.4 hours p.r.n., Las ix 20 mg q. day, Keppra 500 mg b.i.d., phenobarbital 64.8 mg once a day, potassium chloride 20 mEq q. day, quinapril 10 mg once a day, Zoloft 50 mg once a day. DRUG ALLERGIES: The patient has no known drug allergies. PHYSICAL EXAMINATION: VITAL SIGNS: Blood pressure 110/49, pulse 67, respirations 18, temperature 97.9, satting 98% on 2 li ters. GENERAL: She is in no acute distress, nontoxic, pleasant. HEENT: Head: Normocephalic, atraumatic. Eyes: PERRL. Extraocular muscles intact. NECK: Trachea midline. Thyroid normal, no jugular venous distention. RESPIRATORY: No rhonchi, no rales. Clear to auscultation bilaterally. CARDIAC: Regular rate and rhythm. Normal S1, S2. ABDOMEN: Morbidly obese, nontender, positive bowel sounds. EXTREMITIES: No clubbing, cyanosis or edema. NEUROLOGIC: No focal deficits. Full range of motion of all extremities. LABORATORY DATA AND IMAGES: CK of 21, CK-MB of 0.7, troponin I less than 0.01. Comprehensive metab olic panel: Sodium 139, potassium 4.3, chloride 94, CO2 of 36, BUN 12, creatinine 0.72, glucose 214, calcium 9.1, AST 11, ALT 13, alkaline phosphatase 86. Chest x-ray: There is no acute pulmonary dis ease. CBC: White count 10.4, hemoglobin 13.7, hematocrit 42.9, platelets 219, 76.9% neutrophils. ASSESSMENT: 1. Paroxysmal atrial tachycardia. 2. Chronic obstructive pulmonary disease. 3. Obstructive sleep apnea. 4. Morbid obesity. PLAN: The patient will be admitted to telemetry. She will be seen and assessed by the Cardiology Se rvice. The patient's respiratory status is stable. At this point, we will hold off on beta 2 agonis t to avoid exacerbating the atrial tachycardia. Further recommendations per the Cardiology Service. We will obtain pulmonary input if her pulmonary condition deteriorates.
[2017-05-19 01:08] LABS: Troponin I Less than 0.010 ng/mL (< 0.028)
[2017-05-19] MEDS ORDERED: Acetaminophen 500 MG TAB PO PRN (01:15)
[2017-05-19] MEDS ORDERED: diphenhydrAMINE 25 MG CAP PO PRN (01:16)
[2017-05-19 05:00] LABS: #Eosinphils 0.2 thou/uL (0.0-0.7); #Lymphocytes 1.9 thou/uL (1.20-3.40); #Monocytes 0.6 thou/uL (0.11-0.59); %Basophils 0.3 % (0.0-1.0); %Eosinophils 1.4 % (0.0-10.0); %Lymphocytes 17.9 % (21.0-51.0); %Monocytes 5.6 % (0.0-10.0); Mean Platelet Volume 7.1 fL (7.4-10.4); Red Blood Cell (RBC) Count 4.29 mill/uL (4.20-5.40); White Blood Cell (WBC) Count 10.7 thou/uL (4.8-10.8)
[2017-05-19 05:21] LABS: BUN (Urea Nitrogen) 12 mg/dL (9.8-20.1); Calc. Creatinine Clearance 199 mL/min (70-130); Calcium 8.9 mg/dL (7.8-10.44); Estimated GFR-MDRD Greater than 90
[2017-05-19 05:29] LABS: Anion Gap 15 mmol/L (10-20); Carbon Dioxide 33 mmol/L (23-31); Chloride 97 mmol/L (98-107)
[2017-05-19] MEDS ORDERED: levETIRAcetam 500 MG TAB PO SCH (09:00)
[2017-05-19] MEDS ORDERED: Flecainide 50 MG TAB PO SCH ×2 (10:00→21:00)
[2017-05-19] MEDS ORDERED: Digoxin 0.25 MG TAB PO SCH (10:00)
[2017-05-19 10:30] VITALS: TEMP 97.3
--- NOTE | 2017-05-19 12:21 | PDOC.CTH ---
Cardiology Progress Note - Subjective No new issues. She had a run of her tachycardia overnight, looks like atrial tach. - Objective Vital Signs Temp Pulse Resp BP Pulse Ox 05/19/17 10:09 96 05/19/17 08:00 97.3 F L 96 20 96 05/19/17 07:55 97.5 F L 96 24 H 178/80 H 93 L Weight 299 lb 9.6 oz 05/18/17 05/19/17 05/20/17 06:59 06:59 06:59 Intake Total 480 240 Output Total 500 Balance -20 240 - Physical Examination General/Neuro: alert & oriented x3, NAD Neck: no JVD present Lungs: CTA, unlabored respirations Heart: RRR Abdomen: NT/ND Extremities: + edema B (trace) - Telemetry Telemetry Rhythm: NSR, A Tach, non sust - Labs Result Diagrams: 05/19/17 04:21 05/19/17 04:21 Troponin/CKMB CK-MB (CK-2) 0.7 ng/mL (0-6.6) 05/18/17 15:58 Troponin I Less than 0.010 ng/mL (< 0.028) 05/19/17 00:34 - Assessment/Plan 1. Atrial tachycardia 2. Morbid obesity 3. COPD 4. Sleep apnea 5. Mild CAD in 2013 PLAN: - EP evaluation. - Medical therapy versus ablation. Her size would make me think she would need to fail medical therapy before ablation offered.
[2017-05-19 13:08] VITALS: BP 132/60
[2017-05-19] MEDS ORDERED: Dextrose 5% in Water 1,000 ML IV PRN (13:11)
[2017-05-19] MEDS ORDERED: Insulin Regular 300 UNITS/3 ML VIAL SC PRN (13:11)
[2017-05-19] MEDS ORDERED: Dextrose 50% Abboject 50 ML SYRINGE SLOW IVP PRN (13:11)
--- NOTE | 2017-05-19 13:59 | DIS ---
DATE OF ADMISSION: 05/18/2017 DATE OF DISCHARGE: 05/19/2017 DISCHARGE DISPOSITION: Home. FOLLOWUP: 1. Follow up with primary care physician, Dr. Roderick Romo in 1 week. 2. Follow up with Cardiology, Dr. Garcia and Dr. Jeromy Key, Electrophysiology as scheduled. The patient was seen and examined on the day of discharge. Denies any new complaints. No chest pain , shortness of breath, palpitations. She is currently in sinus rhythm with heart rate in the 88. DISCHARGE MEDICATIONS: 1. Albuterol nebulizer and inhaler as needed. 2. Flexeril as needed. 3. Digoxin 0.25 mg daily (new medication). 4. Flecainide 50 mg b.i.d. (new medication). 5. Lasix 20 mg daily. 6. Keppra 500 mg b.i.d. 7. Phenobarbital 136.8 mg at bedtime. 8. Potassium chloride 20 mEq daily. 9. Pravastatin 20 mg at bedtime. 10. Quinapril/HCTZ 10/12.5 daily. 11. Zoloft 50 mg daily. 12. Spiriva inhalation as needed. INPATIENT CONSULTANTS: Cardiology, Dr. Garcia. Electrophysiology, Dr. Lemus. BRIEF HOSPITAL COURSE: The patient is a 66-year-old female with COPD, hypertension, obstructive slee p apnea, and morbid obesity who presented to the hospital with shortness of breath with rapid heart r ate. Please refer to the history and physical dated 05/18/2017 for further details. The patient was admitted to the hospital with a diagnosis of tachyarrhythmia, probably atrial tachyca rdia. Patient was evaluated by Cardiology, Dr. Garcia. The Cardiology recommended electrophysiology evaluation. Patient was evaluated by Electrophysiology, Dr. Lemus. He recommended flecainide 50 mg b.i.d. with digoxin 0.25 mg daily. Digoxin level, follow up as outpatient is recommended. Primary care physician is advised to follow. She has been cleared by Electrophysiology for discharge. FINAL DIAGNOSES: 1. Tachyarrhythmia consistent with supraventricular tachycardia. Patient has been started on flecai nide and digoxin. Digoxin level in 2-3 weeks is recommended. 2. Morbid obesity with a BMI 54.8. 3. Chronic obstructive pulmonary disease. 4. Obstructive sleep apnea. 5. Coronary artery disease. 6. Seizure disorder. 7. Deconditioning. 8. Hypertension. Plan of care was discussed with the patient. She stated understanding.
[2017-05-19] MEDS ORDERED: PHENobarbital 64.8 MG TAB PO SCH (21:00)
[2017-05-19] MEDS ORDERED: Pravastatin Sodium 20 MG TAB PO SCH (21:00)
[2017-05-20] MEDS ORDERED: Digoxin 0.25 MG TAB PO SCH (09:00)
--- NOTE | 2017-07-01 15:25 | EKG ---
Test Reason : PALPITATIONS Blood Pressure : / mmHG Vent. Rate : 081 BPM Atrial Rate : 081 BPM P-R Int : 132 ms QRS Dur : 088 ms QT Int : 392 ms P-R-T Axes : 031 029 079 degrees QTc Int : 455 ms Normal sinus rhythm Nonspecific T wave abnormality Abnormal ECG Confirmed by DAVID SAINI, MARY JO Morley ([id number]), television news video editor ELENITA SMITH ([id number]) on 07/01/2017 3:25:38 PM Referred By: Confirmed By:MARY JO HERNANDEZ MD
== END 2017-05-19 14:28 | disposition home or self-care (01) ==
LOC: ERS 14:36 → 2SW 16:00
PROVIDERS: ADMIT Internal Medicine Addiction Medicine; ATTEND Internal Medicine Addiction Medicine
DX: I47.1 Supraventricular tachycardia (principal); E66.01 Morbid (severe) obesity due to excess calories; J44.9 Chronic obstructive pulmonary disease, unspecified; G47.33 Obstructive sleep apnea (adult) (pediatric); I25.10 Atherosclerotic heart disease of native coronary artery without angina pectoris; G40.909 Epilepsy, unspecified, not intractable, without status epilepticus; R53.81 Other malaise; I10 Essential (primary) hypertension; E78.5 Hyperlipidemia, unspecified; F32.9 Major depressive disorder, single episode, unspecified; J45.909 Unspecified asthma, uncomplicated; Z68.43 Body mass index [BMI] 50.0-59.9, adult; Z79.899 Other long term (current) drug therapy; Z90.49 Acquired absence of other specified parts of digestive tract; Z90.89 Acquired absence of other organs; Z90.710 Acquired absence of both cervix and uterus; Z98.890 Other specified postprocedural states; Z87.81 Personal history of (healed) traumatic fracture
CPT/HCPCS: 71010; 80048; 80053; 82550; 82553; 82962; 83735; 84484 ×3; 85025 ×2; 93005; 93306; 94760; 99285; G0378 ×2; 36415; 36416; A4216

== ENCOUNTER 2017-08-02 20:30 | Outpatient (CLI) | payer MEDICARE, OTHER | END 2017-08-02 20:31 | disposition home or self-care (01) | LOC: SLEEPLAB 20:30 | PROVIDERS: ATTEND Internal Medicine Critical Care Medicine | DX: G47.33 Obstructive sleep apnea (adult) (pediatric) (principal); F41.9 Anxiety disorder, unspecified; E66.9 Obesity, unspecified; R09.02 Hypoxemia | CPT/HCPCS: 95811 ==

== ENCOUNTER 2017-08-16 10:27 | Outpatient (CLI) | payer MEDICARE, MEDICAID ==
--- NOTE | 2017-08-16 10:50 | RAD ---
PA AND LATERAL CHEST: History: Dyspnea. Comparison: 05-18-17 FINDINGS: Heart size is enlarged. Mediastinal structures are unremarkable. The lungs are clear of infiltrates. There are no signs of failure. IMPRESSION: Cardiomegaly. Stable chest. POS: [facility]
== END 2017-08-16 10:28 | disposition home or self-care (01) ==
LOC: RAD 10:27
PROVIDERS: ATTEND Internal Medicine Critical Care Medicine
DX: R06.00 Dyspnea, unspecified (principal); I51.7 Cardiomegaly
CPT/HCPCS: 71046

== ENCOUNTER 2020-08-19 10:31 | Inpatient (IN) | payer MEDICARE, MEDICAID ==
[2020-08-19 11:15] LABS: #Eosinphils 0.2 thou/uL (0.0-0.7); #Lymphocytes 2.3 thou/uL (1.20-3.40); #Monocytes 0.6 thou/uL (0.11-0.59); #Neutrophils 7.6 thou/uL (1.40-6.50); %Basophils 0.2 % (0.0-1.0); %Eosinophils 1.5 % (0.0-10.0); %Lymphocytes 21.5 % (21.0-51.0); %Monocytes 5.9 % (0.0-10.0); Hemoglobin 12.9 g/dL (12.0-16.0); Mean Corpuscular HGB CONC 33.2 g/dL (32.0-36.0); Mean Corpuscular Hemoglobin 30.8 pg (27.0-31.0); Mean Corpuscular Volume 92.6 fL (78.0-98.0); Platelet Count 209 thou/uL (130-400); RBC Distribution Width 12.6 % (11.5-14.5); Red Blood Cell (RBC) Count 4.19 mill/uL (4.20-5.40); White Blood Cell (WBC) Count 10.7 thou/uL (4.8-10.8)
--- NOTE | 2020-08-19 11:32 | RAD ---
CHEST 1 VIEW: HISTORY: Dyspnea. COMPARISON: Radiograph 08/16/2017. FINDINGS: Heart size is enlarged. NO pneumothorax. No effusion. No acute osseous abnormality. No confluent airspace consolidation. IMPRESSION: Cardiomegaly and lung hypoinflation. POS: HOME
[2020-08-19 11:36] LABS: ALT (SGPT) 22 U/L (8-55); AST (SGOT) 18 U/L (5-34); Albumin 3.7 g/dL (3.4-4.8); Alkaline Phosphatase 104 U/L (40-110); Anion Gap 14 mmol/L (10-20); BUN (Urea Nitrogen) 9 mg/dL (9.8-20.1); Bilirubin, Total 0.2 mg/dL (0.2-1.2); Calc. Creatinine Clearance 0 mL/min (70-130); Calcium 8.3 mg/dL (7.8-10.44); Carbon Dioxide 28 mmol/L (23-31); Chloride 103 mmol/L (98-107); Glucose 133 mg/dL (80-115); Magnesium 1.9 mg/dL (1.6-2.6); Potassium 3.6 mmol/L (3.5-5.1); Protein, Total 6.7 g/dL (5.8-8.1); Sodium 141 mmol/L (136-145)
[2020-08-19] MEDS ORDERED: Furosemide 40 MG/4 ML VIAL ONE (11:59)
[2020-08-19] MEDS ORDERED: Ondansetron PF 4 MG/2 ML Vial IVP PRN (15:27)
[2020-08-19 15:42] LABS: Troponin I 0.019 ng/mL (< 0.028)
[2020-08-19] MEDS ORDERED: methylPREDNISolone Sod Succ/PF 125 MG/2 ML VIAL IVP SCH (15:45)
--- NOTE | 2020-08-19 15:46 | PDOC.HHP ---
Hospitalist HPI Shortness of breath History of Present Illness: The patient is a 69-year-old female with past medical history of chronic obstructive pulmonary disease, asthma, obesity, hypertension, hyperlipidemia, and epilepsy. She presented to the ER due to shortness of breath. The patient was staying in a motel and the power went out. The patient reported "freezing today". She has been experiencing worsening shortness of breath for the past couple of days associated with cough productive of whitish sputum. She denied fever or chills. She is not on oxygen at home. She called EMS and in route the patient was monitored reported runs of PVCs that were self-limiting and asymptomatic. In the ER, the patient was short of breath but her symptoms improved after receiving nebulizer treatments. Allergies/Adverse Reactions: Allergy/AdvReac Type Severity Reaction Status Date / Time No Known Drug Allergies Allergy Verified 09/20/19 16:49 Home Medications: Medication Instructions Recorded Confirmed Type ALButerol Sulfate [Ventolin Neb] 3 ml NEB Q6HR PRN 10/18/13 05/18/17 History Furosemide [Lasix] 20 mg PO DAILY 10/18/13 05/18/17 History PHENobarbital 136.8 mg PO HS 10/18/13 05/18/17 History Potassium Chloride 20 meq PO DAILY 10/18/13 05/18/17 History Sertraline HCl [Zoloft] 50 mg PO DAILY 10/18/13 05/18/17 History Levetiracetam [levETIRAcetam] 500 mg PO BID 04/07/17 05/18/17 History Quinapril/Hydrochlorothiazide 1 tablet PO DAILY 04/07/17 05/18/17 History [Quinapril-Hctz 10-12.5 mg Tab] Albuterol Sulfate [Proair HFA] 1 - 2 inh INH ASDIR 05/18/17 05/18/17 History Cyclobenzaprine HCl 5 mg PO DAILY PRN 05/18/17 05/18/17 History Pravastatin Sodium [Pravachol] 20 mg PO HS 05/18/17 05/18/17 History Tiotropium [Spiriva Handihaler] 2 inh INH DAILY PRN 05/18/17 05/18/17 History Digoxin [Lanoxin] 0.25 mg PO QAM #30 tab 05/19/17 Rx Flecainide [Tambocor] 50 mg PO BID #60 tab 05/19/17 Rx Past History: PMHx: As noted above PSHx: Cholecystectomy, hysterectomy, tonsillectomy, and ankle surgery FHx: Noncontributory for the current presentation Social: Patient is a former smoker. Denies drug use or alcohol use. Hospitalist Exam General Appearance: awake alert ENT: normocephalic atraumatic Neck: supple Heart: RRR Respiratory: normal chest expansion, tachypneic, wheezes Gastrointestinal: soft Extremities: no cyanosis, no clubbing Neurological: cranial nerve grossly intact, no weakness Hospitalist Results Result Diagrams: 08/19/20 10:55 08/19/20 10:56 Lab results: Laboratory Last Values WBC 10.7 thou/uL (4.8-10.8) 08/19/20 10:55 RBC 4.19 mill/uL (4.20-5.40) L 08/19/20 10:55 Hgb 12.9 g/dL (12.0-16.0) 08/19/20 10:55 Hct 38.8 % (36.0-47.0) 08/19/20 10:55 MCV 92.6 fL (78.0-98.0) 08/19/20 10:55 MCH 30.8 pg (27.0-31.0) 08/19/20 10:55 MCHC 33.2 g/dL (32.0-36.0) 08/19/20 10:55 RDW 12.6 % (11.5-14.5) 08/19/20 10:55 Plt Count 209 thou/uL (130-400) 08/19/20 10:55 MPV 7.0 fL (7.4-10.4) L 08/19/20 10:55 Neutrophils % 71.0 % (42.0-75.0) 08/19/20 10:55 Lymphocytes % 21.5 % (21.0-51.0) 08/19/20 10:55 Monocytes % 5.9 % (0.0-10.0) 08/19/20 10:55 Eosinophils % 1.5 % (0.0-10.0) 08/19/20 10:55 Basophils % 0.2 % (0.0-1.0) 08/19/20 10:55 Neutrophils # 7.6 thou/uL (1.40-6.50) H 08/19/20 10:55 Lymphocytes # 2.3 thou/uL (1.20-3.40) 08/19/20 10:55 Monocytes # 0.6 thou/uL (0.11-0.59) H 08/19/20 10:55 Eosinophils # 0.2 thou/uL (0.0-0.7) 08/19/20 10:55 Basophils # 0.0 thou/uL (0.0-0.2) 08/19/20 10:55 Sodium 141 mmol/L (136-145) 08/19/20 10:56 Potassium 3.6 mmol/L (3.5-5.1) 08/19/20 10:56 Chloride 103 mmol/L (98-107) 08/19/20 10:56 Carbon Dioxide 28 mmol/L (23-31) 08/19/20 10:56 Anion Gap 14 mmol/L (10-20) 08/19/20 10:56 BUN 9 mg/dL (9.8-20.1) L 08/19/20 10:56 Creatinine 0.70 mg/dL (0.6-1.1) 08/19/20 10:56 Estimated GFR (MDRD) 83 08/19/20 10:56 Glucose 133 mg/dL (80-115) H 08/19/20 10:56 Calcium 8.3 mg/dL (7.8-10.44) 08/19/20 10:56 Magnesium 1.9 mg/dL (1.6-2.6) 08/19/20 10:56 Total Bilirubin 0.2 mg/dL (0.2-1.2) 08/19/20 10:56 AST 18 U/L (5-34) 08/19/20 10:56 ALT 22 U/L (8-55) 08/19/20 10:56 Alkaline Phosphatase 104 U/L (40-110) 08/19/20 10:56 Troponin I 0.019 ng/mL (< 0.028) 08/19/20 15:07 B-Natriuretic Peptide 97.4 pg/mL (0-100) 08/19/20 10:55 Serum Total Protein 6.7 g/dL (5.8-8.1) 08/19/20 10:56 Albumin 3.7 g/dL (3.4-4.8) 08/19/20 10:56 Globulin 3.0 g/dL (2.4-3.5) 08/19/20 10:56 Albumin/Globulin Ratio 1.2 g/dL (1.2-2.2) 08/19/20 10:56 Hospitalist H&P A/P (1) COPD exacerbation Code(s): J44.1 - CHRONIC OBSTRUCTIVE PULMONARY DISEASE W (ACUTE) EXACERBATION Status: Acute (2) HTN (hypertension) Code(s): I10 - ESSENTIAL (PRIMARY) HYPERTENSION Status: Chronic Qualifiers: Hypertension type: essential hypertension (3) Morbid obesity Code(s): E66.01 - MORBID (SEVERE) OBESITY DUE TO EXCESS CALORIES Status: Chronic (4) BENIGNO (obstructive sleep apnea) Code(s): G47.33 - OBSTRUCTIVE SLEEP APNEA (ADULT) (PEDIATRIC) Status: Chronic Plan: Presented with shortness of breath, cough, and wheezing. She is not profoundly hypoxic. Her symptoms are likely due to mild exacerbation of COPD. I will place her in observation and managed her with nebulizer treatments and corticosteroids. If her symptoms do not resolve within the next 24, we will consider adding antibiotics. Chest x-ray revealed evidence of cardiomegaly but no pulmonary edema was noted. BNP was 97 which could be false negative given her morbid obesity. I do not ap preciate any crackles on auscultating her lungs or lower extremity edema so I will not initiate any diuresis at this time. CPAP at night. She can likely be discharged home tomorrow if she remains stable.
[2020-08-19 17:10] LABS: SARS-CoV-2 PCR by NAA Not Detected (NotDetected)
[2020-08-19 17:35] LABS: Troponin I 0.019 ng/mL (< 0.028)
[2020-08-19] MEDS ORDERED: Acetaminophen 325 MG TAB ONE (17:57)
[2020-08-19] MEDS ORDERED: methylPREDNISolone Sod Succ/PF 125 MG/2 ML VIAL ONE (17:57)
[2020-08-19] MEDS: Acetaminophen 325 MG TAB PO PRN ×2 (18:07→22:18)
[2020-08-19 19:39] VITALS: BMI 54.6
[2020-08-19] MEDS ORDERED: levETIRAcetam 500 MG TAB PO SCH (21:45)
[2020-08-19] MEDS: Nystatin Powder 15 GM BOT TOP PRN (22:19)
[2020-08-20 05:23] LABS: #Lymphocytes 1.1 thou/uL (1.20-3.40); #Monocytes 0.5 thou/uL (0.11-0.59); #Neutrophils 12.2 thou/uL (1.40-6.50); %Eosinophils 0.3 % (0.0-10.0); %Lymphocytes 8.1 % (21.0-51.0); %Monocytes 3.5 % (0.0-10.0); %Neutrophils 88.2 % (42.0-75.0); Hemoglobin 12.5 g/dL (12.0-16.0); Mean Corpuscular HGB CONC 32.7 g/dL (32.0-36.0); Mean Corpuscular Hemoglobin 29.9 pg (27.0-31.0); Mean Corpuscular Volume 91.4 fL (78.0-98.0); Platelet Count 242 thou/uL (130-400); RBC Distribution Width 12.6 % (11.5-14.5); Red Blood Cell (RBC) Count 4.19 mill/uL (4.20-5.40); White Blood Cell (WBC) Count 13.8 thou/uL (4.8-10.8)
[2020-08-20 05:37] LABS: Anion Gap 12 mmol/L (10-20); BUN (Urea Nitrogen) 14 mg/dL (9.8-20.1); Calc. Creatinine Clearance 167 mL/min (70-130); Calcium 8.7 mg/dL (7.8-10.44); Carbon Dioxide 31 mmol/L (23-31); Chloride 102 mmol/L (98-107); Glucose 147 mg/dL (80-115); Potassium 4.1 mmol/L (3.5-5.1); Sodium 141 mmol/L (136-145)
[2020-08-20] MEDS ORDERED: Furosemide 20 MG/2 ML VIAL SLOW IVP SCH (06:00)
[2020-08-20] MEDS: Enoxaparin Sodium 40 MG/0.4 ML SYRINGE SC SCH (09:48)
[2020-08-20] MEDS: levETIRAcetam 500 MG TAB PO SCH ×2 (09:48→20:53)
[2020-08-20] MEDS: predniSONE 20 MG TAB PO SCH (09:48)
--- NOTE | 2020-08-20 09:52 | PDOC.DS.DS ---
Provider Date of Admission: 08/19/20 14:05 Date of Discharge: 08/20/20 Admitting Provider: Gabe Rodriguez MD Primary Care Physician: Lalit Cobb MD Course Hospital Course: The patient is a 69-year-old female with past medical history of chronic obstructive pulmonary disease, asthma, obesity, hypertension, hyperlipidemia, and epilepsy. She presented to the ER due to shortness of breath. The patient was staying in a motel and the power went out. The patient reported "freezing today". She has been experiencing worsening shortness of breath for the past couple of days associated with cough productive of whitish sputum. She denied fever or chills. She is not on oxygen at home. She called EMS and in route the patient was monitored reported runs of PVCs that were self-limiting and asymptomatic. In the ER, the patient was short of breath but her symptoms improved after receiving nebulizer treatments. She was placed in observation and managed with nebulizer treatments and corticosteroids. She did not require oxygen her condition remained stable on the day of discharge. Lab Results: 08/20/20 04:53 08/20/20 04:53 Abnormal Lab Results - Last 48 hrs 08/19/20 10:55: RBC 4.19 L, MPV 7.0 L, Neutrophils # 7.6 H, Monocytes # 0.6 H 08/19/20 10:56: BUN 9 L 08/20/20 04:53: WBC 13.8 H, RBC 4.19 L, MPV 7.0 L, Neutrophils % 88.2 H, Lymphocytes % 8.1 L, Neutrophils # 12.2 H, Lymphocytes # 1.1 L Vitals: Vital Signs (12 hours) Temp Pulse Resp BP BP Pulse Ox 08/20/20 08:45 97.8 F 64 19 180/77 H 100 08/20/20 03:11 98.4 F 54 L 20 148/65 H 99 08/20/20 03:02 18 100 08/20/20 01:11 97.9 F 78 14 166/71 H 97 08/19/20 22:27 101 H 16 94 L Weight Weight 298 lb 6.4 oz Physical Exam: The patient was seen and examined on the day of discharge. Problem (1) COPD exacerbation Code(s): J44.1 - CHRONIC OBSTRUCTIVE PULMONARY DISEASE W (ACUTE) EXACERBATION Status: Acute (2) HTN (hypertension) Code(s): I10 - ESSENTIAL (PRIMARY) HYPERTENSION Status: Chronic Qualifiers: Hypertension type: essential hypertension Qualified Code(s): I10 - Essential (primary) hypertension (3) Morbid obesity Code(s): E66.01 - MORBID (SEVERE) OBESITY DUE TO EXCESS CALORIES Status: Chronic (4) BENIGNO (obstructive sleep apnea) Code(s): G47.33 - OBSTRUCTIVE SLEEP APNEA (ADULT) (PEDIATRIC) Status: Chronic Plan Prescriptions: Amlodipine [Norvasc] 10 mg PO DAILY #30 tab predniSONE 40 mg PO QAM-WM #10 tab Home Medications: Medication Instructions Recorded Confirmed Type ALButerol Sulfate [Ventolin Neb] 3 ml NEB Q6HR PRN 10/18/13 08/19/20 History Furosemide [Lasix] 40 mg PO DAILY 10/18/13 08/19/20 History PHENobarbital 194.4 mg PO HS 10/18/13 08/19/20 History Sertraline HCl [Zoloft] 50 mg PO DAILY 10/18/13 08/19/20 History Levetiracetam [levETIRAcetam] 500 mg PO BID 04/07/17 08/19/20 History Albuterol Sulfate [Proair HFA] 1 inh INH BID 05/18/17 08/19/20 History Potassium Chloride 20 meq PO BID 08/19/20 08/19/20 History Quinapril HCl 5 mg PO DAILY 08/19/20 08/19/20 History Amlodipine [Norvasc] 10 mg PO DAILY #30 tab 08/20/20 Rx predniSONE 40 mg PO QAM-WM #10 tab 08/20/20 Rx Allergies: No Known Drug Allergies Allergy (Verified 08/19/20 20:53) per pt Referrals: Lalit Cobb MD [Primary Care Provider] - Disposition: HOME Quality CORE MEASURES:: N/A
[2020-08-20] MEDS ORDERED: Amlodipine 10 MG TAB PO SCH (10:00)
[2020-08-20] MEDS: Acetaminophen 325 MG TAB PO PRN ×2 (12:18→18:59)
[2020-08-20] MEDS: PHENobarbital 32.4 MG TAB PO SCH (20:53)
[2020-08-20] MEDS ORDERED: FLU VACC QS2020-21(65YR UP)/PF 240 MCG/0.7 ML SYRINGE IM ONE (21:00)
[2020-08-21] MEDS: Acetaminophen 325 MG TAB PO PRN (07:41)
[2020-08-21] MEDS: levETIRAcetam 500 MG TAB PO SCH ×2 (07:42→20:54)
[2020-08-21] MEDS: predniSONE 20 MG TAB PO SCH (07:43)
[2020-08-21] MEDS: Enoxaparin Sodium 40 MG/0.4 ML SYRINGE SC SCH (07:43)
[2020-08-21] MEDS ORDERED: Albuterol Sulfate 2.5 mg/3 ml Neb NEB PRN (07:57)
[2020-08-21] MEDS ORDERED: Non-Formulary Item 1 EACH (Albuterol Sulfate [Proair Hfa] 8.5 GM Hfa.Aer.Ad) INH SCH (09:00)
[2020-08-21] MEDS: Furosemide 40 MG TAB PO SCH (09:45)
[2020-08-21] MEDS: Lisinopril 5 MG TAB PO SCH (09:45)
[2020-08-21] MEDS: Benzonatate 100 MG CAP PO PRN ×2 (09:45→22:48)
--- NOTE | 2020-08-21 10:16 | PDOC.HOSPP ---
- Subjective Encounter Date: 08/21/20 Subjective: The patient was not discharged yesterday due to social issues and lack of transportation. She lives in [place] and came to this town to be about her son from nursing home. She spends her money staying in a motel before being transferred to the hospital after her power went out and she was unable to use her CPAP. Overnight, the patient became more short of breath. Wheezing was reported by the nursing staff. The patient is coughing more today with yellowish sputum. - Objective Vital Signs & Weight: Vital Signs (12 hours) Temp Pulse Resp BP Pulse Ox 08/21/20 07:57 97.9 F 62 20 138/65 90 L 08/21/20 04:00 97.8 F 59 L 16 146/62 H 92 L 08/21/20 02:23 13 08/21/20 00:00 98.6 F 54 L 18 124/53 L 96 08/20/20 22:42 64 16 95 08/20/20 22:35 89 20 95 Weight Weight 298 lb 6.4 oz I&O: 08/20/20 08/21/20 08/22/20 06:59 06:59 06:59 Intake Total 720 120 Output Total 250 150 Balance 470 -30 Result Diagrams: 08/20/20 04:53 08/20/20 04:53 Hospitalist ROS - Medication Medications: Active Medications Generic Name Dose Route Start Last Admin Trade Name Freq PRN Reason Stop Dose Admin Acetaminophen 650 mg 08/19/20 15:27 08/21/20 07:41 Acetaminophen 325 Mg Tab PO 650 mg Q4H PRN Administration Headache/Fever/Mild Pain (1-3) Benzonatate 100 mg 08/21/20 07:57 08/21/20 09:45 Benzonatate 100 Mg Cap PO 100 mg Q4H PRN Administration Cough Enoxaparin Sodium 40 mg 08/20/20 09:00 08/21/20 07:43 Enoxaparin Sodium 40 Mg/0.4 Ml Syringe SC 40 mg 0900 AISSATOU Administration Furosemide 40 mg 08/21/20 09:00 08/21/20 09:45 Furosemide 40 Mg Tab PO 40 mg DAILY AISSATOU Administration Levetiracetam 500 mg 08/20/20 09:00 08/21/20 07:42 Levetiracetam 500 Mg Tab PO 500 mg BID AISSATOU Administration Lisinopril 5 mg 08/21/20 09:00 08/21/20 09:45 Lisinopril 5 Mg Tab PO 5 mg DAILY AISSATOU Administration Nystatin 0 gm 08/19/20 21:36 08/19/20 22:19 Nystatin Powder 15 Gm Bot TOP 1 applic BID PRN Administration Topical Irritations Phenobarbital 194.4 mg 08/20/20 21:00 08/20/20 20:53 Phenobarbital 32.4 Mg Tab PO 194.4 mg HS AISSATOU Administration Sodium Chloride 10 ml 08/21/20 09:00 08/21/20 09:45 Flush - Normal Saline 10 Ml Syringe IVF 10 ml Q12HR AISSATOU Administration Hospitalist Exam Vitals: Vital Signs (12 hours) Temp Pulse Resp BP Pulse Ox 08/21/20 07:57 97.9 F 62 20 138/65 90 L 08/21/20 04:00 97.8 F 59 L 16 146/62 H 92 L 08/21/20 02:23 13 08/21/20 00:00 98.6 F 54 L 18 124/53 L 96 08/20/20 22:42 64 16 95 08/20/20 22:35 89 20 95 Weight Weight 298 lb 6.4 oz General Appearance: awake alert ENT: normocephalic atraumatic Neck: supple Heart: RRR Respiratory: normal chest expansion, no tachypnea, wheezes Extremities: no cyanosis, no clubbing Neurological: cranial nerve grossly intact, no new deficit Hosp A/P (1) COPD exacerbation Code(s): J44.1 - CHRONIC OBSTRUCTIVE PULMONARY DISEASE W (ACUTE) EXACERBATION Status: Acute (2) HTN (hypertension) Code(s): I10 - ESSENTIAL (PRIMARY) HYPERTENSION Status: Chronic Qualifiers: Hypertension type: essential hypertension Qualified Code(s): I10 - Essenti al (primary) hypertension (3) Morbid obesity Code(s): E66.01 - MORBID (SEVERE) OBESITY DUE TO EXCESS CALORIES Status: Chronic (4) BENIGNO (obstructive sleep apnea) Code(s): G47.33 - OBSTRUCTIVE SLEEP APNEA (ADULT) (PEDIATRIC) Status: Chronic - Plan The patient is in a state of COPD exacerbation. Continue scheduled nebulized treatments and IV corticosteroids. Add IV levofloxacin 500 mg daily. Continue PT and OT. Case management consulted to assist with her current issues.
[2020-08-21] MEDS: methylPREDNISolone Sod Succ 40 MG VIAL IVP SCH ×2 (13:19→20:53)
[2020-08-21] MEDS: Albuterol 200 PUFF (6.7GM INHALER) INH SCH (19:54)
[2020-08-21] MEDS: PHENobarbital 32.4 MG TAB PO SCH (20:54)
[2020-08-21] MEDS: Nystatin Powder 15 GM BOT TOP PRN (21:03)
[2020-08-22] MEDS: methylPREDNISolone Sod Succ 40 MG VIAL IVP SCH ×3 (06:07→21:46)
[2020-08-22] MEDS: Albuterol 200 PUFF (6.7GM INHALER) INH SCH ×2 (07:30→19:53)
[2020-08-22] MEDS: levETIRAcetam 500 MG TAB PO SCH ×2 (08:59→21:46)
[2020-08-22] MEDS: Enoxaparin Sodium 40 MG/0.4 ML SYRINGE SC SCH (08:59)
[2020-08-22] MEDS: Furosemide 40 MG TAB PO SCH (08:59)
[2020-08-22] MEDS: Lisinopril 5 MG TAB PO SCH (08:59)
[2020-08-22] MEDS: Benzonatate 100 MG CAP PO PRN ×2 (09:01→21:46)
--- NOTE | 2020-08-22 10:23 | PDOC.HOSPP ---
- Subjective Encounter Date: 08/22/20 Subjective: Patient states her shortness of breath is better and she was able to sleep better last night. However, she continues to have dyspnea on exertion, productive cough, and wheezing. - Objective Vital Signs & Weight: Vital Signs (12 hours) Temp Pulse Resp BP BP Pulse Ox 08/22/20 08:00 97.6 F 52 L 20 152/65 H 95 08/22/20 07:30 82 20 92 L 08/22/20 03:42 97.3 F L 63 20 154/63 H 98 08/22/20 02:06 95 08/22/20 00:00 97.6 F 56 L 13 140/63 97 08/21/20 23:11 94 L Weight Weight 298 lb 6.4 oz I&O: 08/21/20 08/22/20 08/23/20 06:59 06:59 06:59 Intake Total 120 744 Output Total 150 Balance -30 744 Result Diagrams: 08/20/20 04:53 08/20/20 04:53 Radiology Reviewed by me: Yes Hospitalist ROS - Review of Systems Respiratory: reports: cough, shortness of breath, SOB with excertion, wheezing - Medication Medications: Active Medications Generic Name Dose Route Start Last Admin Trade Name Freq PRN Reason Stop Dose Admin Acetaminophen 650 mg 08/19/20 15:27 08/21/20 07:41 Acetaminophen 325 Mg Tab PO 650 mg Q4H PRN Administration Headache/Fever/Mild Pain (1-3) Albuterol Sulfate 1 puff 08/21/20 18:30 08/22/20 07:30 Albuterol 200 Puff (6.7gm Inhaler) INH Not Given BID-RT AISSATOU Albuterol/Ipratropium 3 ml 08/21/20 10:30 08/22/20 07:30 Ipratropium/Albuterol Sulfate 3 Ml Neb NEB 3 ml [id number] AISSATOU Administration Benzonatate 100 mg 08/21/20 07:57 08/22/20 09:01 Benzonatate 100 Mg Cap PO 100 mg Q4H PRN Administration Cough Enoxaparin Sodium 40 mg 08/20/20 09:00 08/22/20 08:59 Enoxaparin Sodium 40 Mg/0.4 Ml Syringe SC 40 mg 0900 AISSATOU Administration Levofloxacin 500 mg/ Device 100 mls @ 100 mls/hr 08/21/20 11:00 08/21/20 11:15 IVPB 100 mls Q24HR AISSATOU Administration Levetiracetam 500 mg 08/20/20 09:00 08/22/20 08:59 Levetiracetam 500 Mg Tab PO 500 mg BID AISSATOU Administration Lisinopril 5 mg 08/21/20 09:00 08/22/20 08:59 Lisinopril 5 Mg Tab PO 5 mg DAILY AISSATOU Administration Methylprednisolone Sodium Succinate 40 mg 08/21/20 14:00 08/22/20 06:07 Methylprednisolone Sod Succ 40 Mg Vial IVP 40 mg Q8HR AISSATOU Administration Nystatin 0 gm 08/19/20 21:36 08/21/20 21:03 Nystatin Powder 15 Gm Bot TOP 1 applic BID PRN Administration Topical Irritations Phenobarbital 194.4 mg 08/20/20 21:00 08/21/20 20:54 Phenobarbital 32.4 Mg Tab PO 194.4 mg HS AISSATOU Administration Sertraline HCl 50 mg 08/21/20 21:00 08/21/20 20:54 Sertraline Hcl 25 Mg Tab PO 50 mg HS AISSATOU Administration Sodium Chloride 10 ml 08/21/20 09:00 08/22/20 09:00 Flush - Normal Saline 10 Ml Syringe IVF 10 ml Q12HR AISSATOU Administration Hospitalist Exam Vitals: Vital Signs (12 hours) Temp Pulse Resp BP BP Pulse Ox 08/22/20 08:00 97.6 F 52 L 20 152/65 H 95 08/22/20 07:30 82 20 92 L 08/22/20 03:42 97.3 F L 63 20 154/63 H 98 08/22/20 02:06 95 08/22/20 00:00 97.6 F 56 L 13 140/63 97 08/21/20 23:11 94 L Weight Weight 298 lb 6.4 oz General Appearance: NAD General - other findings: Obese ENT: moist mucosa Heart: RRR, no murmur Respiratory - other findings: Bilateral wheezing present, mild respiratory distress with exertion Gastrointestinal: soft, non-tender, non-distended Extremities: no edema Psychiatric: normal affect Hosp A/P (1) COPD exacerbation Code(s): J44.1 - CHRONIC OBSTRUCTIVE PULMONARY DISEASE W (ACUTE) EXACERBATION Status: Acute Plan: Patient has signs and symptoms of COPD exasperation. She is currently on 2L NC with Spo2 in the mid 90's. She states she uses 3L O2 supplement at night with her CPAP at home. Plan: -cont Solumedrol 40 mg iv Q8H -cont Duoneb Q4H -cone Levaquin 500 mg iv daily -Patient will need horticultural manager plumber assistant when she is ready to be discharged as she does not have transportation (2) HTN (hypertension) Code(s): I10 - ESSENTIAL (PRIMARY) HYPERTENSION Status: Chronic Qualifiers: Hypertension type: essential hypertension Qualified Code(s): I10 - Essential (primary) hypertension Plan: -cont home med (3) Seizure disorder Code(s): G40.909 - EPILEPSY, UNSP, NOT INTRACTABLE, WITHOUT STATUS EPILEPTICUS Status: Chronic Plan: -cont home meds (4) BENIGNO (obstructive sleep apnea) Code(s): G47.33 - OBSTRUCTIVE SLEEP APNEA (ADULT) (PEDIATRIC) Status: Chronic Plan: -cont CPAP at night
[2020-08-22] MEDS: Acetaminophen 325 MG TAB PO PRN (17:53)
--- NOTE | 2020-08-22 18:12 | EKG ---
Test Reason : Blood Pressure : / mmHG Vent. Rate : 073 BPM Atrial Rate : 073 BPM P-R Int : 126 ms QRS Dur : 086 ms QT Int : 410 ms P-R-T Axes : 072 025 056 degrees QTc Int : 451 ms Normal sinus rhythm Nonspecific T wave abnormality Abnormal ECG Confirmed by AMBREEN Carpio, JUAN C ([id number]), newspaper editor KATHERINE STONE ([id number]) on 08/22/2020 6:12:16 PM Referred By: Confirmed By:JUAN C CROOK M.D.
[2020-08-22] MEDS: PHENobarbital 32.4 MG TAB PO SCH (21:46)
[2020-08-23] MEDS: methylPREDNISolone Sod Succ 40 MG VIAL IVP SCH ×3 (05:51→21:15)
[2020-08-23 07:41] LABS: #Eosinphils 0.1 thou/uL (0.0-0.7); #Lymphocytes 1.2 thou/uL (1.20-3.40); #Monocytes 0.6 thou/uL (0.11-0.59); #Neutrophils 9.3 thou/uL (1.40-6.50); %Eosinophils 0.6 % (0.0-10.0); %Lymphocytes 10.9 % (21.0-51.0); %Monocytes 5.2 % (0.0-10.0); %Neutrophils 83.2 % (42.0-75.0); Hemoglobin 11.9 g/dL (12.0-16.0); Mean Corpuscular HGB CONC 33.2 g/dL (32.0-36.0); Mean Corpuscular Hemoglobin 30.6 pg (27.0-31.0); Mean Corpuscular Volume 92.1 fL (78.0-98.0); Mean Platelet Volume 6.9 fL (7.4-10.4); Platelet Count 212 thou/uL (130-400); RBC Distribution Width 12.6 % (11.5-14.5); Red Blood Cell (RBC) Count 3.89 mill/uL (4.20-5.40); White Blood Cell (WBC) Count 11.1 thou/uL (4.8-10.8)
--- NOTE | 2020-08-23 07:50 | PDOC.HOSPP ---
- Subjective Encounter Date: 08/23/20 Subjective: patient states her SOB is better today. She continue to have cough, wheezing and FERREIRA. - Objective Vital Signs & Weight: Vital Signs (12 hours) Temp Pulse Resp BP BP Pulse Ox 08/23/20 03:31 97.1 F L 63 17 157/104 H 98 08/23/20 03:05 97 08/23/20 00:00 97.6 F 52 L 13 131/60 99 08/22/20 23:07 92 L 08/22/20 20:00 97.4 F L 54 L 20 131/60 99 08/22/20 19:51 94 L Weight Weight 298 lb 6.4 oz I&O: 08/22/20 08/23/20 08/24/20 06:59 06:59 06:59 Intake Total 744 900 Balance 744 900 Result Diagrams: 08/23/20 07:27 08/20/20 04:53 Hospitalist ROS - Review of Systems Respiratory: reports: cough, shortness of breath, SOB with excertion, wheezing - Medication Medications: Active Medications Generic Name Dose Route Start Last Admin Trade Name Freq PRN Reason Stop Dose Admin Acetaminophen 650 mg 08/19/20 15:27 08/22/20 17:53 Acetaminophen 325 Mg Tab PO 650 mg Q4H PRN Administration Headache/Fever/Mild Pain (1-3) Albuterol/Ipratropium 3 ml 08/21/20 10:30 08/23/20 06:57 Ipratropium/Albuterol Sulfate 3 Ml Neb NEB 3 ml [id number] AISSATOU Administration Benzonatate 100 mg 08/21/20 07:57 08/22/20 21:46 Benzonatate 100 Mg Cap PO 100 mg Q4H PRN Administration Cough Enoxaparin Sodium 40 mg 08/20/20 09:00 08/22/20 08:59 Enoxaparin Sodium 40 Mg/0.4 Ml Syringe SC 40 mg 0900 AISSATOU Administration Levofloxacin 500 mg/ Device 100 mls @ 100 mls/hr 08/21/20 11:00 08/22/20 10:54 IVPB 100 mls Q24HR AISSATOU Administration Levetiracetam 500 mg 08/20/20 09:00 08/22/20 21:46 Levetiracetam 500 Mg Tab PO 500 mg BID AISSATOU Administration Lisinopril 5 mg 08/21/20 09:00 08/22/20 08:59 Lisinopril 5 Mg Tab PO 5 mg DAILY AISSATOU Administration Methylprednisolone Sodium Succinate 40 mg 08/21/20 14:00 08/23/20 05:51 Methylprednisolone Sod Succ 40 Mg Vial IVP 40 mg Q8HR AISSATOU Administration Nystatin 0 gm 08/19/20 21:36 08/21/20 21:03 Nystatin Powder 15 Gm Bot TOP 1 applic BID PRN Administration Topical Irritations Phenobarbital 194.4 mg 08/20/20 21:00 08/22/20 21:46 Phenobarbital 32.4 Mg Tab PO 194.4 mg HS AISSATOU Administration Sertraline HCl 50 mg 08/21/20 21:00 08/22/20 21:45 Sertraline Hcl 25 Mg Tab PO 50 mg HS AISSATOU Administration Sodium Chloride 10 ml 08/21/20 09:00 08/22/20 21:46 Flush - Normal Saline 10 Ml Syringe IVF 10 ml Q12HR AISSATOU Administration Hospitalist Exam Vitals: Vital Signs (12 hours) Temp Pulse Resp BP BP Pulse Ox 08/23/20 03:31 97.1 F L 63 17 157/104 H 98 08/23/20 03:05 97 08/23/20 00:00 97.6 F 52 L 13 131/60 99 08/22/20 23:07 92 L 08/22/20 20:00 97.4 F L 54 L 20 131/60 99 08/22/20 19:51 94 L Weight Weight 298 lb 6.4 oz General Appearance: NAD ENT: moist mucosa Heart: RRR, no murmur Respiratory - other findings: bilateral expiratory wheezing present, no respi ratory distress Gastrointestinal: soft, non-tender, non-distended Extremities: no edema Psychiatric: normal affect Hosp A/P (1) COPD exacerbation Code(s): J44.1 - CHRONIC OBSTRUCTIVE PULMONARY DISEASE W (ACUTE) EXACERBATION Status: Acute Plan: Patient continues to have wheezing and is requiring 2L NC O2 supplement. She says she uses 3L O2 supplement with her CPAP at night at home but not day time. Her symptoms appear to be improving slowly. Plan; -O2 supplement prn -cont current Solumedrol, Duoneb and Levaquin -will need assistance with case management when she is ready to be discharge as patient states she moved from [place] and has been staying in a Motel here, and currently has no where to go. (2) HTN (hypertension) Code(s): I10 - ESSENTIAL (PRIMARY) HYPERTENSION Status: Chronic Qualifiers: Hypertension type: essential hypertension Qualified Code(s): I10 - Essential (primary) hypertension Plan: Plan: -cont home med (3) Seizure disorder Code(s): G40.909 - EPILEPSY, UNSP, NOT INTRACTABLE, WITHOUT STATUS EPILEPTICUS Status: Chronic Plan: Plan: -cont home med (4) BENIGNO (obstructive sleep apnea) Code(s): G47.33 - OBSTRUCTIVE SLEEP APNEA (ADULT) (PEDIATRIC) Status: Chronic Plan: Plan:L -CPAP at night
[2020-08-23 07:52] LABS: Anion Gap 11 mmol/L (10-20); BUN (Urea Nitrogen) 19 mg/dL (9.8-20.1); Calc. Creatinine Clearance 164 mL/min (70-130); Calcium 8.5 mg/dL (7.8-10.44); Carbon Dioxide 31 mmol/L (23-31); Chloride 99 mmol/L (98-107); Glucose 140 mg/dL (80-115); Potassium 4.3 mmol/L (3.5-5.1); Sodium 137 mmol/L (136-145)
[2020-08-23] MEDS: levETIRAcetam 500 MG TAB PO SCH ×2 (08:05→21:16)
[2020-08-23] MEDS: Lisinopril 5 MG TAB PO SCH (08:05)
[2020-08-23] MEDS: Enoxaparin Sodium 40 MG/0.4 ML SYRINGE SC SCH (08:05)
[2020-08-23] MEDS: Benzonatate 100 MG CAP PO PRN (08:05)
[2020-08-23] MEDS: Acetaminophen 325 MG TAB PO PRN (10:06)
[2020-08-23] MEDS ORDERED: guaiFENesin/DM ER PO SCH (12:00)
[2020-08-23] MEDS: PHENobarbital 32.4 MG TAB PO SCH (21:15)
[2020-08-23] MEDS: guaiFENesin/DM ER PO SCH (21:16)
[2020-08-24] MEDS: methylPREDNISolone Sod Succ 40 MG VIAL IVP SCH ×3 (06:50→20:20)
[2020-08-24] MEDS: Lisinopril 5 MG TAB PO SCH (08:37)
[2020-08-24] MEDS: Enoxaparin Sodium 40 MG/0.4 ML SYRINGE SC SCH (08:37)
[2020-08-24] MEDS: guaiFENesin/DM ER PO SCH ×2 (08:37→20:20)
[2020-08-24] MEDS: levETIRAcetam 500 MG TAB PO SCH ×2 (08:37→20:20)
--- NOTE | 2020-08-24 10:59 | PDOC.HOSPP ---
- Subjective Encounter Date: 08/24/20 non-verbal Subjective: Patient states her SOB at rest is better but continues to have cough and FERREIRA. - Objective Vital Signs & Weight: Vital Signs (12 hours) Temp Pulse Resp BP BP Pulse Ox 08/24/20 10:45 51 L 18 93 L 08/24/20 08:30 98 F 54 L 13 142/86 H 94 L 08/24/20 07:06 55 L 18 95 08/24/20 04:18 96.3 F L 51 L 14 137/62 98 08/24/20 02:00 98 08/24/20 01:59 98 Weight Weight 298 lb 6.4 oz I&O: 08/23/20 08/24/20 08/25/20 06:59 06:59 06:59 Intake Total 900 988 Balance 900 988 Result Diagrams: 08/23/20 07:27 08/23/20 07:27 Hospitalist ROS - Review of Systems Respiratory: reports: cough, SOB with excertion - Medication Medications: Active Medications Generic Name Dose Route Start Last Admin Trade Name Freq PRN Reason Stop Dose Admin Acetaminophen 650 mg 08/19/20 15:27 08/23/20 10:06 Acetaminophen 325 Mg Tab PO 650 mg Q4H PRN Administration Headache/Fever/Mild Pain (1-3) Albuterol/Ipratropium 3 ml 08/21/20 10:30 08/24/20 10:45 Ipratropium/Albuterol Sulfate 3 Ml Neb NEB 3 ml [id number] AISSATOU Administration Benzonatate 100 mg 08/21/20 07:57 08/23/20 08:05 Benzonatate 100 Mg Cap PO 100 mg Q4H PRN Administration Cough Enoxaparin Sodium 40 mg 08/20/20 09:00 08/24/20 08:37 Enoxaparin Sodium 40 Mg/0.4 Ml Syringe SC 40 mg 0900 AISSATOU Administration Guaifenesin/Dextromethorphan 1 tab 08/23/20 21:00 08/24/20 08:37 Guaifenesin/Dm Er PO 1 tab Q12HR AISSATOU Administration Levofloxacin 500 mg/ Device 100 mls @ 100 mls/hr 08/21/20 11:00 08/23/20 10:10 IVPB 100 mls Q24HR AISSATOU Administration Levetiracetam 500 mg 08/20/20 09:00 08/24/20 08:37 Levetiracetam 500 Mg Tab PO 500 mg BID AISSATOU Administration Lisinopril 5 mg 08/21/20 09:00 08/24/20 08:37 Lisinopril 5 Mg Tab PO 5 mg DAILY AISSATOU Administration Methylprednisolone Sodium Succinate 40 mg 08/21/20 14:00 08/24/20 06:50 Methylprednisolone Sod Succ 40 Mg Vial IVP 40 mg Q8HR AISSATOU Administration Nystatin 0 gm 08/19/20 21:36 08/21/20 21:03 Nystatin Powder 15 Gm Bot TOP 1 applic BID PRN Administration Topical Irritations Phenobarbital 194.4 mg 08/20/20 21:00 08/23/20 21:15 Phenobarbital 32.4 Mg Tab PO 194.4 mg HS AISSATOU Administration Sertraline HCl 50 mg 08/21/20 21:00 08/23/20 21:15 Sertraline Hcl 25 Mg Tab PO 50 mg HS AISSATOU Administration Sodium Chloride 10 ml 08/21/20 09:00 08/24/20 08:37 Flush - Normal Saline 10 Ml Syringe IVF 10 ml Q12HR AISSATOU Administration Hospitalist Exam Vitals: Vital Signs (12 hours) Temp Pulse Resp BP BP Pulse Ox 08/24/20 10:45 51 L 18 93 L 08/24/20 08:30 98 F 54 L 13 142/86 H 94 L 08/24/20 07:06 55 L 18 95 08/24/20 04:18 96.3 F L 51 L 14 137/62 98 08/24/20 02:00 98 08/24/20 01:59 98 Weight Weight 298 lb 6.4 oz General Appearance: NAD, awake alert ENT: moist mucosa Neck: no JVD Heart: RRR, no murmur Respiratory: no tachypnea Respiratory - other findings: bilateral expiratory wheezing present Gastrointestinal: soft, non-tender, non-distended Extremities: no edema Psychiatric: normal affect Hosp A/P (1) COPD exacerbation Code(s): J44.1 - CHRONIC OBSTRUCTIVE PULMONARY DISEASE W (ACUTE) EXACERBATION Status: Acute Plan: Patient still has wheezing on exam. Plan: -O2 supplement prn -cont Solumedrol, Duoneb and Levaquin (2) HTN (hypertension) Code(s): I10 - ESSENTIAL (PRIMARY) HYPERTENSION Status: Chronic Qualifiers: Hypertension type: essential hypertension Qualified Code(s): I10 - Essential (primary) hypertension Plan: PLan: -cont home med (3) Seizure disorder Code(s): G40.909 - EPILEPSY, UNSP, NOT INTRACTABLE, WITHOUT STATUS EPILEPTICUS Status: Chronic Plan: Plan: -cont home med (4) BENIGNO (obstructive sleep apnea) Code(s): G47.33 - OBSTRUCTIVE SLEEP APNEA (ADULT) (PEDIATRIC) Status: Chronic Plan: She has a portable CPAP with her. Plan: -CPAP at night
[2020-08-24] MEDS: Acetaminophen 325 MG TAB PO PRN (11:06)
[2020-08-24] MEDS ORDERED: Magnesium Sulfate 4 GM in Sodium Chloride 0.9% 250 ML 250 ML IVPB SCH (11:15)
[2020-08-24] MEDS: Benzonatate 100 MG CAP PO PRN (20:19)
[2020-08-24] MEDS: PHENobarbital 32.4 MG TAB PO SCH (20:20)
[2020-08-25] MEDS: methylPREDNISolone Sod Succ 40 MG VIAL IVP SCH ×3 (05:28→20:55)
[2020-08-25] MEDS: guaiFENesin/DM ER PO SCH ×2 (08:11→20:55)
[2020-08-25] MEDS: Enoxaparin Sodium 40 MG/0.4 ML SYRINGE SC SCH (08:11)
[2020-08-25] MEDS: levETIRAcetam 500 MG TAB PO SCH ×2 (08:11→20:33)
[2020-08-25] MEDS: Lisinopril 5 MG TAB PO SCH (08:11)
--- NOTE | 2020-08-25 08:57 | PDOC.HOSPP ---
- Subjective Encounter Date: 08/25/20 Subjective: Patient states no SOB at rest but still has FERREIRA. Her cough is better. - Objective Vital Signs & Weight: Vital Signs (12 hours) Temp Pulse Resp BP BP Pulse Ox 08/25/20 07:30 98 F 55 L 14 133/64 94 L 08/25/20 06:51 67 16 92 L 08/25/20 03:37 97.3 F L 52 L 14 135/63 97 08/25/20 02:25 10 L 08/25/20 00:00 98.1 F 64 13 179/75 H 97 08/24/20 22:51 98 08/24/20 22:35 59 L 16 95 Weight Weight 298 lb 6.4 oz I&O: 08/24/20 08/25/20 08/26/20 06:59 06:59 06:59 Intake Total 988 962 Output Total 462 Balance 988 500 Result Diagrams: 08/23/20 07:27 08/23/20 07:27 Hospitalist ROS - Review of Systems Respiratory: reports: cough, SOB with excertion Cardiovascular: denies: chest pain - Medication Medications: Active Medications Generic Name Dose Route Start Last Admin Trade Name Freq PRN Reason Stop Dose Admin Acetaminophen 650 mg 08/19/20 15:27 08/24/20 11:06 Acetaminophen 325 Mg Tab PO 650 mg Q4H PRN Administration Headache/Fever/Mild Pain (1-3) Albuterol/Ipratropium 3 ml 08/21/20 10:30 08/25/20 06:51 Ipratropium/Albuterol Sulfate 3 Ml Neb NEB 3 ml [id number] AISSATOU Administration Benzonatate 100 mg 08/21/20 07:57 08/24/20 20:19 Benzonatate 100 Mg Cap PO 100 mg Q4H PRN Administration Cough Enoxaparin Sodium 40 mg 08/20/20 09:00 08/25/20 08:11 Enoxaparin Sodium 40 Mg/0.4 Ml Syringe SC 40 mg 0900 AISSATOU Administration Guaifenesin/Dextromethorphan 1 tab 08/23/20 21:00 08/25/20 08:11 Guaifenesin/Dm Er PO 1 tab Q12HR AISSATOU Administration Levofloxacin 500 mg/ Device 100 mls @ 100 mls/hr 08/21/20 11:00 08/24/20 11:06 IVPB 100 mls Q24HR AISSATOU Administration Levetiracetam 500 mg 08/20/20 09:00 08/25/20 08:11 Levetiracetam 500 Mg Tab PO 500 mg BID AISSATOU Administration Lisinopril 5 mg 08/21/20 09:00 08/25/20 08:11 Lisinopril 5 Mg Tab PO 5 mg DAILY AISSATOU Administration Methylprednisolone Sodium Succinate 40 mg 08/21/20 14:00 08/25/20 05:28 Methylprednisolone Sod Succ 40 Mg Vial IVP 40 mg Q8HR AISSATOU Administration Nystatin 0 gm 08/19/20 21:36 08/21/20 21:03 Nystatin Powder 15 Gm Bot TOP 1 applic BID PRN Administration Topical Irritations Phenobarbital 194.4 mg 08/20/20 21:00 08/24/20 20:20 Phenobarbital 32.4 Mg Tab PO 194.4 mg HS AISSATOU Administration Sertraline HCl 50 mg 08/21/20 21:00 08/24/20 20:20 Sertraline Hcl 25 Mg Tab PO 50 mg HS AISSATOU Administration Sodium Chloride 10 ml 08/21/20 09:00 08/25/20 08:17 Flush - Normal Saline 10 Ml Syringe IVF 10 ml Q12HR AISSATOU Administration Hospitalist Exam Vitals: Vital Signs (12 hours) Temp Pulse Resp BP BP Pulse Ox 08/25/20 07:30 98 F 55 L 14 133/64 94 L 08/25/20 06:51 67 16 92 L 08/25/20 03:37 97.3 F L 52 L 14 135/63 97 08/25/20 02:25 10 L 08/25/20 00:00 98.1 F 64 13 179/75 H 97 08/24/20 22:51 98 08/24/20 22:35 59 L 16 95 Weight Weight 298 lb 6.4 oz General Appearance: NAD, awake alert ENT: moist mucosa Heart: RRR, no murmur Respiratory - other findings: bilateral wheezing present, no respiratory distress Gastrointestinal: soft, non-tender, non-distended Extremities: no edema Psychiatric: normal affect Hosp A/P (1) COPD exacerbation Code(s): J44.1 - CHRONIC OBSTRUCTIVE PULMONARY DISEASE W (ACUTE) EXACERBATION Status: Acute Plan: improving slowly. Spo2 in the low 90's on RA. Plan; -will likely discharge her tomorrow. Case Management will assist with placement as patient is from [place] and has no place to stay here in town. -cont Duoneb, Solumedrol and Levaquin (2) HTN (hypertension) Code(s): I10 - ESSENTIAL (PRIMARY) HYPERTENSION Status: Chronic Qualifiers: Hypertension type: essential hypertension Qualified Code(s): I10 - Essential (primary) hypertension Plan: Plan; -cont home med (3) Seizure disorder Code(s): G40.909 - EPILEPSY, UNSP, NOT INTRACTABLE, WITHOUT STATUS EPILEPTICUS Status: Chronic Plan: Plan; -cont home med (4) BENIGNO (obstructive sleep apnea) Code(s): G47.33 - OBSTRUCTIVE SLEEP APNEA (ADULT) (PEDIATRIC) Status: Chronic Plan: Plan; -CPAP at night
[2020-08-25] MEDS: Acetaminophen 325 MG TAB PO PRN (18:20)
[2020-08-25] MEDS: PHENobarbital 32.4 MG TAB PO SCH (20:55)
[2020-08-26] MEDS: methylPREDNISolone Sod Succ 40 MG VIAL IVP SCH (05:22)
[2020-08-26 07:39] LABS: Anion Gap 12 mmol/L (10-20); BUN (Urea Nitrogen) 22 mg/dL (9.8-20.1); Calc. Creatinine Clearance 147 mL/min (70-130); Calcium 8.4 mg/dL (7.8-10.44); Carbon Dioxide 30 mmol/L (23-31); Chloride 99 mmol/L (98-107); Glucose 192 mg/dL (80-115); Potassium 4.7 mmol/L (3.5-5.1); Sodium 136 mmol/L (136-145)
[2020-08-26] MEDS: Furosemide 40 MG TAB PO SCH ×2 (08:35→20:49)
[2020-08-26] MEDS: Enoxaparin Sodium 40 MG/0.4 ML SYRINGE SC SCH (08:35)
[2020-08-26] MEDS: levETIRAcetam 500 MG TAB PO SCH ×2 (08:35→20:49)
[2020-08-26] MEDS: Lisinopril 5 MG TAB PO SCH (08:35)
[2020-08-26] MEDS: guaiFENesin/DM ER PO SCH ×2 (08:35→20:49)
--- NOTE | 2020-08-26 11:50 | PDOC.HOSPP ---
- Subjective Encounter Date: 08/26/20 Subjective: Patient states she gets SOB when she walks but her O2 supplement helps. She still has some cough. - Objective Vital Signs & Weight: Vital Signs (12 hours) Temp Pulse Resp BP BP Pulse Ox 08/26/20 11:20 97.8 F 62 16 143/67 H 94 L 08/26/20 10:10 72 16 08/26/20 07:52 97.9 F 56 L 13 194/77 H 94 L 08/26/20 07:10 69 18 98 08/26/20 04:00 98.0 F 57 L 18 152/69 H 97 08/25/20 23:58 98 Weight Weight 298 lb 6.4 oz I&O: 08/25/20 08/26/20 08/27/20 06:59 06:59 06:59 Intake Total 962 1470 237 Output Total 462 Balance 500 1470 237 Result Diagrams: 08/23/20 07:27 08/26/20 07:14 Hospitalist ROS - Review of Systems Respiratory: reports: cough, SOB with excertion - Medication Medications: Active Medications Generic Name Dose Route Start Last Admin Trade Name Freq PRN Reason Stop Dose Admin Acetaminophen 650 mg 08/19/20 15:27 08/25/20 18:20 Acetaminophen 325 Mg Tab PO 650 mg Q4H PRN Administration Headache/Fever/Mild Pain (1-3) Albuterol/Ipratropium 3 ml 08/21/20 10:30 08/26/20 10:10 Ipratropium/Albuterol Sulfate 3 Ml Neb NEB 3 ml [id number] AISSATOU Administration Benzonatate 100 mg 08/21/20 07:57 08/24/20 20:19 Benzonatate 100 Mg Cap PO 100 mg Q4H PRN Administration Cough Enoxaparin Sodium 40 mg 08/20/20 09:00 08/26/20 08:35 Enoxaparin Sodium 40 Mg/0.4 Ml Syringe SC 40 mg 0900 IASSATOU Administration Furosemide 40 mg 08/26/20 09:00 08/26/20 08:35 Furosemide 40 Mg Tab PO 40 mg Q12HR AISSATOU Administration Guaifenesin/Dextromethorphan 1 tab 08/23/20 21:00 08/26/20 08:35 Guaifenesin/Dm Er PO 1 tab Q12HR AISSATOU Administration Levofloxacin 500 mg/ Device 100 mls @ 100 mls/hr 08/21/20 11:00 08/25/20 11:49 IVPB 100 mls Q24HR AISSATOU Administration Levetiracetam 500 mg 08/20/20 09:00 08/26/20 08:35 Levetiracetam 500 Mg Tab PO 500 mg BID AISSATOU Administration Lisinopril 5 mg 08/21/20 09:00 08/26/20 08:35 Lisinopril 5 Mg Tab PO 5 mg DAILY AISSATOU Administration Nystatin 0 gm 08/19/20 21:36 08/21/20 21:03 Nystatin Powder 15 Gm Bot TOP 1 applic BID PRN Administration Topical Irritations Phenobarbital 194.4 mg 08/20/20 21:00 08/25/20 20:55 Phenobarbital 32.4 Mg Tab PO 194.4 mg HS AISSATOU Administration Sertraline HCl 50 mg 08/21/20 21:00 08/25/20 20:33 Sertraline Hcl 25 Mg Tab PO 50 mg HS AISSATOU Administration Sodium Chloride 10 ml 08/21/20 09:00 08/26/20 08:35 Flush - Normal Saline 10 Ml Syringe IVF 10 ml Q12HR AISSATOU Administration Hospitalist Exam Vitals: Vital Signs (12 hours) Temp Pulse Resp BP BP Pulse Ox 08/26/20 11:20 97.8 F 62 16 143/67 H 94 L 08/26/20 10:10 72 16 08/26/20 07:52 97.9 F 56 L 13 194/77 H 94 L 08/26/20 07:10 69 18 98 08/26/20 04:00 98.0 F 57 L 18 152/69 H 97 08/25/20 23:58 98 Weight Weight 298 lb 6.4 oz General Appearance: NAD, awake alert ENT: moist mucosa Heart: RRR, no murmur Respiratory: CTAB Respiratory - other findings: some wheezing when she coughs, otherwise CTAB Gastrointestinal: soft, non-tender, non-distended Extremities - other findings: 1+ edema on the LE bilaterally Psychiatric: normal affect Hosp A/P (1) COPD exacerbation Code(s): J44.1 - CHRONIC OBSTRUCTIVE PULMONARY DISEASE W (ACUTE) EXACERBATION Status: Acute Plan: Improved on exam today. O2 in the mid 90's on 2L NC. Plan: -will switch IV steroid to PO -cont Duoneb -will stop Levaquin tomorrow, after a total of 7 days -Patient is pending placement. She was denied for [facility]. Referral for [facility] is sent, waiting to hear back from them. Home O2 needs to be set up when she is discharged from that facility. (2) HTN (hypertension) Code(s): I10 - ESSENTIAL (PRIMARY) HYPERTENSION Status: Chronic Qualifiers: Hypertension type: essential hypertension Qualified Code(s): I10 - Essential (primary) hypertension Plan: Plan: -cont Lisinopril -restart home Amlodipine (3) Seizure disorder Code(s): G40.909 - EPILEPSY, UNSP, NOT INTRACTABLE, WITHOUT STATUS EPILEPTICUS Status: Chronic Plan: Plan: -cont home med (4) BENIGNO (obstructive sleep apnea) Code(s): G47.33 - OBSTRUCTIVE SLEEP APNEA (ADULT) (PEDIATRIC) Status: Chronic Plan: Patient has portable CPAP Plan: -continue CPAP at night
[2020-08-26] MEDS ORDERED: Amlodipine 10 MG TAB PO SCH (12:00)
[2020-08-26] MEDS: PHENobarbital 32.4 MG TAB PO SCH (20:49)
[2020-08-26] MEDS ORDERED: Mag-Al 1200 mg/1200 mg/30 ML UDCUP PO SCH (21:15)
[2020-08-27] MEDS: Enoxaparin Sodium 40 MG/0.4 ML SYRINGE SC SCH (07:58)
[2020-08-27] MEDS: Furosemide 40 MG TAB PO SCH (07:59)
[2020-08-27] MEDS: Lisinopril 5 MG TAB PO SCH (07:59)
[2020-08-27] MEDS: levETIRAcetam 500 MG TAB PO SCH (07:59)
[2020-08-27] MEDS ORDERED: predniSONE 20 MG TAB PO SCH (08:00)
[2020-08-27] MEDS: guaiFENesin/DM ER PO SCH (08:09)
[2020-08-27] MEDS ORDERED: Amlodipine 10 MG TAB PO SCH (09:00)
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
[2020-08-27 12:01] VITALS: BP 124/63; TEMP 98
== END 2020-08-27 15:55 | disposition swing bed (61) | DRG 191 ==
LOC: ERS 10:31 → ERHOLD 14:05 → 2SE 18:40 → OBSVTOIN 08-21 11:25
PROVIDERS: ADMIT Internal Medicine; ATTEND Internal Medicine
DX: J44.1 Chronic obstructive pulmonary disease with (acute) exacerbation (principal); Z68.43 Body mass index [BMI] 50.0-59.9, adult; Z20.822 Contact with and (suspected) exposure to COVID-19; I10 Essential (primary) hypertension; G40.909 Epilepsy, unspecified, not intractable, without status epilepticus; G47.33 Obstructive sleep apnea (adult) (pediatric); F32.9 Major depressive disorder, single episode, unspecified; E78.5 Hyperlipidemia, unspecified; E66.01 Morbid (severe) obesity due to excess calories; Z79.51 Long term (current) use of inhaled steroids; Z79.899 Other long term (current) drug therapy; Z90.49 Acquired absence of other specified parts of digestive tract; Z90.710 Acquired absence of both cervix and uterus; Z87.891 Personal history of nicotine dependence
CPT/HCPCS: 36415; 71045; 80048; 80053; 83735; 83880; 84484; 85025; 87635; 93005; 94640; 94660; 96372; 96374; 96375; 96376; G0378; J1650; J1940; J1956; J2920; J2930; J3475; J7050; J7512; J7620; U0003; U0005